=== PATIENT | male | born 1965 | race Caucasian/White ===

== ENCOUNTER 2017-01-22 12:41 | Inpatient (IN) | payer MEDICAID ==
[2017-01-22 12:41] VITALS: BMI 32.1
--- NOTE | 2017-01-22 14:39 | RAD ---
PROCEDURE: CHEST RADIOGRAPH, 1 VIEW HISTORY: chest pain COMPARISON: Comparison chest dated 08/10/2016 FINDINGS: LUNGS: Poor inspiration with low lung volumes, crowded bronchovascular markings and mild bibasilar atelectasis. PLEURA: No pneumothorax or pleural fluid seen. CARDIOVASCULAR: Heart size is upper limits of normal however this likely due to poor inspiration as well. OSSEOUS STRUCTURES: No significant abnormalities. VISUALIZED UPPER ABDOMEN: Normal. OTHER FINDINGS: None. IMPRESSION: Poor inspiration with low lung volumes, crowded bronchovascular markings and mild bibasilar atelectasis.
[2017-01-22 15:13] LABS: BASO % 0.3 % (0.0-2.0); EOS # 0.1 K/uL (0.0-0.7); EOS % 1.6 % (0.0-4.0); LYMPH # 1.1 K/uL (1.0-4.3); LYMPH % 15.6 % (20.0-40.0); MEAN CORPUSCULAR HEMOGLOBIN 29.3 pg (27.0-31.0); MEAN CORPUSCULAR HGB CONC 34.8 g/dL (33.0-37.0); MEAN PLATELET VOLUME 8.1 fL (7.2-11.7); MONO # 0.7 K/uL (0.0-0.8); MONO % 10.1 % (0.0-10.0); NRBC % 0.1 % (0.0-2.0); RED CELL DISTRIBUTION WIDTH 13.2 % (11.5-14.5); WHITE BLOOD COUNT 6.8 K/uL (4.8-10.8)
[2017-01-22 15:15] LABS: MEAN CELL VOLUME 84.2 fL (80.0-94.0)
[2017-01-22 15:25] LABS: POTASSIUM 4.2 mmol/L (3.6-5.2)
[2017-01-22 15:26] LABS: ALB/GLOB RATIO 1.6 (1.0-2.1); BILIRUBIN,TOTAL 0.7 mg/dL (0.2-1.3); TOTAL PROTEIN 7.3 g/dL (6.3-8.3)
[2017-01-22 15:28] LABS: CALCIUM 8.9 mg/dl (8.6-10.4)
[2017-01-22 15:30] LABS: PARTIAL THROMBOPLASTIN TIME 27 SECONDS (21-34)
[2017-01-22 16:56] LABS: RBC URINE 1 /hpf (0-3); URINE BACTERIA RARE (<OCC); URINE BILIRUBIN NEGATIVE (NEGATIVE); URINE BLOOD NEGATIVE (NEGATIVE); URINE COLOR Yellow (YELLOW); URINE GLUCOSE (UA) NORMAL (Normal); URINE KETONE NEGATIVE (NEGATIVE); URINE PROTEIN NEGATIVE (NEGATIVE); URINE UROBILINOGEN NORMAL mg/dL (0.2-1.0); WBC URINE 7 /hpf (0-5)
[2017-01-22 16:57] LABS: URINE LEUKOCYTE ESTERASE 1+ Leu/uL (Negative)
[2017-01-22] MEDS ORDERED: Sodium Chloride 0.9% 1,000 ML IV ONE (17:45)
--- NOTE | 2017-01-22 17:52 | C.PDOC ---
Time Seen by Provider: 01/22/17 13:38 Chief Complaint (Nursing): Chest Pain History Per: Patient, EMS Onset/Duration Of Symptoms: Days (1), Waxing/Waning Current Symptoms Are (Timing): Still Present Severity: Moderate Quality: "Pain" Associated Symptoms: Dyspnea Modifying Factors: Other Indicated Below Exacerbating Factors: Exertion Additional History Per: Prior Records Past Medical History Reviewed: Historical Data, Nursing Documentation, Vital Signs Vital Signs: Last Vital Signs Temp 98.0 F 01/22/17 14:25 Pulse 59 L 01/22/17 14:25 Resp 16 01/22/17 14:25 BP 127/67 01/22/17 14:25 Pulse Ox 100 01/22/17 14:25 - Medical History PMH: Benign Prostatic Hyperplasia, CAD, Diabetes, HTN, Hypercholesterolemia, Hyperlipidemia, Malignancy (Prostate. Treated with radiation therapy) Surgical History: Coronary Stent (X2) Family History: States: Unknown Family Hx - Social History Hx Tobacco Use: No Hx Alcohol Use: No Hx Substance Use: No - Immunization History Hx Tetanus Toxoid Vaccination: No Hx Influenza Vaccination: No Hx Pneumococcal Vaccination: No Review Of Systems Except As Marked, All Systems Reviewed And Found Negative. Constitutional: Negative for: Fever Cardiovascular: Positive for: Chest Pain Respiratory: Negative for: Hemoptysis Gastrointestinal: Negative for: Vomiting, Abdominal Pain Genitourinary: Positive for: Dysuria (?) Musculoskeletal: Negative for: Neck Pain Skin: Negative for: Rash Neurological: Negative for: Weakness, Numbness Physical Exam - Physical Exam Appears: Non-toxic, No Acute Distress Skin: Normal Color, Warm, Dry, No Rash Head: Atraumatic, Normacephalic Eye(s): bilateral: Normal Inspection, PERRL, EOMI Neck: Normal ROM, Supple Cardiovascular: Rhythm Regular Respiratory: Normal Breath Sounds, No Accessory Muscle Use Gastrointestinal/Abdominal: Soft, No Tenderness Back: No CVA Tenderness Male Genital: No Testicular Swelling, No Scrotal Swelling Extremity: Normal ROM Neurological/Psych: Oriented x3, Normal Motor, Normal Sensation ED Course And Treatment - Laboratory Results Result Diagrams: 01/22/17 15:09 01/22/17 15:09 Lab Interpretation: Abnormal Interpretation Of Abnormal: Renal insufficiency ECG: Interpreted By Me, Viewed By Me ECG Rhythm: Sinus Rhythm, Nonspecific Changes ECG Interpretation: No Acute Changes Rate From EC O2 Sat by Pulse Oximetry: 100 Pulse Ox Interpretation: Normal - Radiology CXR: Viewed By Me, Read By Radiologist CXR Interpretation: Yes: No Acute Disease Progress - Interventions Interventions:: Observation, Intravenous fluid, Oxygen - Medications Administered Oral: Aspirin (given by EMS) - Data Reviewed Data Reviewed: Lab, Diagnostic imaging, EKG, Old records - Patient Status Patient status: Partially improved - Continuity of Care Discussed patient case with:: Patient, ED Nurse, PMD - Patient Plan Patient Plan: Admission, Telemetry Disposition Discussed With DrRaymundo: Rach Friedman Comment: He accepted pt on his service. Doctor Will See Patient In The: Hospital Counseled Patient/Family Regarding: Studies Performed, Diagnosis - Disposition Disposition: HOSPITALIZED Disposition Time: 17:54 Condition: FAIR - Clinical Impression Clinical Impression: Chest pain, Acute kidney injury
[2017-01-23] MEDS: Sodium Chloride 0.9% 1,000 ML IV SCH ×3 (01:58→22:55)
[2017-01-23] MEDS: (Novolog) Insulin Aspart, Recombinant 100 u/ml 10 ml vial SC SCH ×4 (07:31→22:04)
[2017-01-23] MEDS ORDERED: Metoprolol Succinate 50 mg XL Tab PO SCH (10:00)
[2017-01-23] MEDS: Bisoprolol-HCTZ 5-6.25 mg Tab PO SCH (10:04)
[2017-01-23] MEDS: Lactobacillus Acidophilus 500 MU Cap PO SCH (10:04)
[2017-01-23] MEDS: Multiple Vitamins Tab PO SCH (10:04)
[2017-01-23 11:41] LABS: CHLORIDE 102 mmol/L (98-107); SODIUM 135 mmol/L (132-148)
[2017-01-23 11:42] LABS: POTASSIUM 3.7 mmol/L (3.6-5.2)
[2017-01-23 11:44] LABS: BLOOD UREA NITROGEN 31 mg/dL (9-20); CARBON DIOXIDE 23 mmol/L (22-30); GFR AFRICAN-AMERICAN 48
[2017-01-23 11:45] LABS: CALCIUM 8.5 mg/dl (8.6-10.4); GLUCOSE,RANDOM 177 mg/dL (75-110)
--- NOTE | 2017-01-23 16:06 | CP.PCM.CON ---
History of Present Illness - History of Present Illness History of Present Illness: pt is seen and examined, full consult is dictated #[id number] 1. Jen on ckd 2. htn 3. dm 4. cad, s/p stent check u/s kidneys for size, check hept.b,c serology, loni, pth intact gentle iv hydration Past Patient History - Infectious Disease Hx of Infectious Diseases: None - Past Medical History & Family History Past Medical History?: Yes - Past Social History Smoking Status: Never Smoked - CARDIAC Hx Cardiac Disorders: Yes Hx Hypercholesterolemia: Yes Hx Hypertension: Yes - PULMONARY Hx Respiratory Disorders: No - NEUROLOGICAL Hx Neurological Disorder: No - HEENT Hx HEENT Problems: No - RENAL Hx Chronic Kidney Disease: No - ENDOCRINE/METABOLIC Hx Endocrine Disorders: Yes Hx Diabetes Mellitus Type 2: Yes - HEMATOLOGICAL/ONCOLOGICAL Hx Blood Disorders: No - INTEGUMENTARY Hx Dermatological Problems: No - MUSCULOSKELETAL/RHEUMATOLOGICAL Hx Musculoskeletal Disorders: Yes Hx Falls: Yes ("lost conscious twice") - GASTROINTESTINAL Hx Gastrointestinal Disorders: No - GENITOURINARY/GYNECOLOGICAL Hx Genitourinary Disorders: Yes Hx Prostate Cancer: Yes Hx Prostate Problems: Yes - PSYCHIATRIC Hx Psychophysiologic Disorder: No Hx Substance Use: No - SURGICAL HISTORY Hx Surgeries: Yes Hx Coronary Stent: Yes (X2) - ANESTHESIA Hx Anesthesia: Yes Hx Anesthesia Reactions: No Hx Malignant Hyperthermia: No Has any member of the family had a problem w/ anesthesia?: No Meds Allergies/Adverse Reactions: Allergies Allergy/AdvReac Type Severity Reaction Status Date / Time strawberry Allergy REDNESS Verified 01/22/17 12:57 - Medications Medications: Current Medications Aspirin (Aspirin Chewable) 81 mg PO DAILY [facility] Last Admin: 01/23/17 10:03 Dose: 81 mg Bisoprolol Fumarate (Zebeta) 5 mg PO DAILY [facility] Clopidogrel Bisulfate (Plavix) 75 mg PO DAILY [facility] Last Admin: 01/23/17 10:03 Dose: 75 mg Docusate Sodium (Colace) 100 mg PO BID [facility] Sodium Chloride (Sodium Chloride 0.9%) 1,000 mls @ 100 mls/hr IV .Q10H [facility] Last Admin: 01/23/17 12:13 Dose: 100 mls/hr Insulin Aspart (Novolog) 0 unit SC ACHS [facility] PRN Reason: Protocol Last Admin: 01/23/17 12:00 Dose: Not Given Lactobacillus Acidophilus (Bacid Acidophilus) 1 cap PO DAILY [facility] Last Admin: 01/23/17 10:04 Dose: 1 cap Lactulose (Enulose) 20 gm PO TID [facility] Metoprolol Succinate (Toprol Xl) 50 mg PO DAILY [facility] Last Admin: 01/23/17 10:03 Dose: 50 mg Multivitamins (Hexavitamin) 1 tab PO DAILY [facility] Last Admin: 01/23/17 10:04 Dose: 1 tab Pneumococcal Polyvalent Vaccine (Pneumovax 23 Vaccine) 0.5 ml IM .ONCE ONE Stop: 01/25/17 10:01 Rosuvastatin Calcium (Crestor) 20 mg PO [facility] Results - Vital Signs Recent Vital Signs: Last Vital Signs Temp 97.8 F 01/23/17 07:30 Pulse 65 01/23/17 07:30 Resp 20 01/23/17 07:30 BP 114/75 01/23/17 07:30 Pulse Ox 96 01/23/17 07:30 - Labs Result Diagrams: 01/22/17 15:09 01/23/17 11:11 Labs: Laboratory Results - last 24 hr 01/22/17 01/22/17 01/23/17 16:40 21:44 01:16 Sodium Potassium Chloride Carbon Dioxide Anion Gap BUN Creatinine Est GFR ( Amer) Est GFR (Non-Af Amer) POC Glucose (mg/dL) 90 Random Glucose Calcium Total Creatine Kinase 88 CK-MB (Mass) 0.37 Troponin I, Quant 0.0120 Urine Color Yellow Urine Clarity Clear Urine pH 5.0 Ur Specific [place] 1.011 Urine Protein Negative Urine Glucose (UA) Normal Urine Ketones Negative Urine Blood Negative Urine Nitrate Negative Urine Bilirubin Negative Urine Urobilinogen Normal Ur Leukocyte Esterase 1+ H Urine WBC (Auto) 7 H Urine RBC (Auto) 1 Urine Bacteria Rare 01/23/17 01/23/17 01/23/17 06:39 11:11 11:53 Sodium 135 Potassium 3.7 Chloride 102 Carbon Dioxide 23 Anion Gap 14 BUN 31 H Creatinine 1.8 H Est GFR ( Amer) 48 Est GFR (Non-Af Amer) 40 POC Glucose (mg/dL) 133 H 86 Random Glucose 177 H Calcium 8.5 L Total Creatine Kinase 69 CK-MB (Mass) 0.42 Troponin I, Quant < 0.0120 Urine Color Urine Clarity Urine pH Ur Specific [place] Urine Protein Urine Glucose (UA) Urine Ketones Urine Blood Urine Nitrate Urine Bilirubin Urine Urobilinogen Ur Leukocyte Esterase Urine WBC (Auto) Urine RBC (Auto) Urine Bacteria
--- NOTE | 2017-01-23 23:42 | CON ---
DATE: CARDIOLOGY CONSULT REASON FOR CONSULTATION: Dizziness and near syncope. HISTORY OF PRESENT ILLNESS: The patient is a 51-year-old [place] male who has a history of diabetes mellitus, history of coronary artery disease, underwent stenting few years ago at [facility]; however, no record is available from my own review of the [facility] database. The patient presented because of dizziness. The patient stated that he was experiencing diarrhea and slight fever and day before yesterday, had a near fainting episode while urinating; however, the patient elected not to call the ambulance and came to Dr. Carson office and Dr. Carson called EMS to transfer him to the emergency room. The patient also reporting chest discomfort upon his presentation. PAST MEDICAL HISTORY: History of prostatic CA treated with radiation, history of coronary artery disease, questionable coronary intervention in the past, history of diabetes mellitus. MEDICATIONS: Aspirin 81 mg once a day, Crestor 20 mg once a day, multivitamin one tablet once a day, Plavix 75 mg once a day, Toprol XL 50 mg once a day, Ziac once tablet once a day. SOCIAL HISTORY: Nonsmoker. PHYSICAL EXAMINATION: GENERAL: The patient is a middle-aged male, who does not appear to be in any distress. VITAL SIGNS: Blood pressure 114/75, heart rate 65, temperature 97.8, respirations 20. HEENT: Normocephalic. NECK: No JVD. CHEST: Clear. HEART: S1 and S2 regular. ABDOMEN: Soft. EXTREMITIES: No edema. LABORATORY DATA: SMA-7; sodium 135, potassium 3.7, chloride 102, CO2 of 23, glucose 177, BUN 31, and creatinine 1.8. PT, PTT and INR are within normal limits. Hemoglobin, hematocrit, white count and platelet count are within normal limits. Chest x-ray revealed normal cardiac silhouette, prominent bronchovascular markings. EKG reveals normal sinus rhythm at the rate of 60. ASSESSMENT: 1. Dizziness and near syncope, rule out underlying dehydration. 2. Atypical chest pain. Myocardial infarction is ruled out. 3. Acute renal insufficiency, most likely related to underlying dehydration. RECOMMENDATIONS: Aspirin 81 mg once a day, Crestor 20 mg once a day, Plavix 75 mg once a day, Toprol XL 20 mg once a day. Discontinue Ziac and replace it with bisoprolol at 5 mg daily. Obtain an echocardiogram. Chapito Tripp MD [facility] # [id number]
--- NOTE | 2017-01-24 01:27 | CON ---
DATE: RENAL CONSULTATION LOCATION: The patient is located on room 653, bed A. REQUESTED BY: Rach Friedman MD. REASON FOR FOLLOWUP: Acute renal failure versus acute on chronic kidney disease for further evaluation. HISTORY OF PRESENT ILLNESS: Mr. Gonzales is a 51-year-old middle age obese [place]ian male with a past medical history significant for hypertension, type II diabetes, hyperlipidemia and prostate CA with radiation therapy, coronary artery disease, status post x2, who was admitted with a chief complaints of left flank pain and difficulty urinate and questionable dysuria and the patient was found to have worsening renal function and admitted for further evaluation, started on IV fluids. The patient is feeling slightly better, not in acute distress. Denies any headache, dizziness. Denies any chest pain, palpitation. Denies any fever, cough. Denies any nausea, vomiting, or diarrhea. Denies any swelling of the legs. PAST MEDICAL HISTORY: Significant for hypertension, diabetes, hyperlipidemia, coronary artery disease, status post stents, BPH, and prostate CA. PAST SURGICAL HISTORY: Status post coronary stents 2 and status post radiation therapy for the prostate CA. ALLERGIES: ALLERGIC TO STRAWBERRIES, CURRENT MEDICATIONS: Include aspirin 81 mg daily, Bacid one capsule p.o. daily, Colace 100 mg p.o. b.i.d., Crestor 20 mg at bedtime, lactulose 20 gram p.o. t.i.d., multivitamin one table daily, NovoLog for sliding scale, Plavix 75 mg p.o. daily, pneumococcal vaccine x1, normal saline 100 mL/hour and metoprolol 50 mg p.o. daily on hold and the patient is on Zebeta 5 mg p.o. daily. SOCIAL HISTORY: Denies any smoking, alcohol, or drugs. PERSONAL HISTORY: Not significant. FAMILY HISTORY: Not significant. REVIEW OF SYSTEMS: Significant for right flank pain and difficulty urinate. All other review of systems are reviewed and negative. PHYSICAL EXAMINATION: VITAL SIGNS: Blood pressure 130/76, pulse 57, respirations 20, temperature 98, saturations 97%, height 5 feet 6 inches, and weight is 210 pounds. GENERAL: Mr. Gonzales is a 51-year-old middle-aged obese [place]ian male, well built, well nourished, not in acute distress. HEENT: Pupils normal, reactive to light and accommodation. Conjunctiva pink. Sclerae anicteric. Tongue is moist. Trachea is midline. LUNGS: Symmetric on both sides. Bilateral breath sounds present. Clear to auscultation. CARDIOVASCULAR: [place] at the fifth intercostal space, midclavicular. S1 and S2 audible. No murmur or gallop. ABDOMEN: Normal in appearance, soft, tympanic. No guarding. No rigidity. No hepatosplenomegaly. No abdominal bruits. CENTRAL NERVOUS SYSTEM: The patient is alert, awake, oriented x3. Nonfocal neuro examination. Cranial nerves II through XII grossly intact. Sensory and motor system is within normal limits. EXTREMITIES: No cyanosis. No clubbing. No edema. LABORATORY DATA: Includes as follows; as of 01/23/2017, sodium 135, potassium 3.7, chloride 102, CO2 of 23, BUN 31, creatinine 1.8, and glucose of 177, calcium 8.5 and CPK 88, 69, and 73. CK-MB 0.37, 0.42, and 0.42. Troponin 0.012, 0.012, and 0.012. C3 is 121, C4 is 33.9. Other laboratory data; as of 01/22/2017, WBC 6.8, hemoglobin 15.7, hematocrit is 45, and platelets 178. PT 11.4, PTT 27, D-dimer less than 200. Sodium 135, potassium 4.0, chloride 100, CO2 of 25, BUN 33, creatinine 2.6, glucose 100, calcium 8.9, total bili 0.7, AST 27, ALT 41, alkaline phosphatase 57. ProBNP 131 and total protein 7.3. Urinalysis; yellow, clear, pH 5.0, specific gravity 1.011, protein negative, glucose negative, ketones negative, blood negative, nitrites negative, urobilinogen normal. Leukocyte esterase is 1+. WBC is 7, RBC 1, bacteria rare. Urine culture is negative. ASSESSMENT: In summary, Mr. Gonzales is a 51-year-old obese [place]istanian male with hypertension; diabetes; hyperlipidemia; coronary artery disease, status post stents x2; prostate carcinoma, status post treatment with radiation therapy who was admitted with left flank pain and questionable dysuria, increase BUN and creatinine. 1. Acute renal failure versus acute on chronic kidney disease. 2. Hypertension. 3. Diabetes. 4. Coronary artery disease. PLAN: Continue IV fluids. We will check hepatitis B and C serology, CATRACHO, and ultrasound of the kidneys. Continue gentle IV hydration. We will follow with you. Thank you for allowing me to participate in your patient's care. Cannot rule out intravascular volume depletion and mild dehydration. Aliya Livingston MD
[2017-01-24] MEDS ORDERED: Hydrocortisone 2.5% Rectal Cream(30 gm) PR ONE (02:47)
[2017-01-24] MEDS ORDERED: Hydrocortisone 2.5% Rectal Cream(30 gm) PR SCH (03:00)
[2017-01-24 07:18] LABS: BASO % 0.6 % (0.0-2.0); EOS # 0.1 K/uL (0.0-0.7); EOS % 2.8 % (0.0-4.0); HEMATOCRIT 40.1 % (35.0-51.0); LYMPH # 1.1 K/uL (1.0-4.3); LYMPH % 23.6 % (20.0-40.0); MEAN CELL VOLUME 84.1 fL (80.0-94.0); MEAN CORPUSCULAR HEMOGLOBIN 28.9 pg (27.0-31.0); MEAN CORPUSCULAR HGB CONC 34.3 g/dL (33.0-37.0); MEAN PLATELET VOLUME 7.9 fL (7.2-11.7); MONO # 0.5 K/uL (0.0-0.8); MONO % 11.3 % (0.0-10.0); RED CELL DISTRIBUTION WIDTH 13.3 % (11.5-14.5); WHITE BLOOD COUNT 4.7 K/uL (4.8-10.8)
[2017-01-24] MEDS: (Novolog) Insulin Aspart, Recombinant 100 u/ml 10 ml vial SC SCH ×4 (07:22→21:15)
[2017-01-24] MEDS: Sodium Chloride 0.9% 1,000 ML IV SCH ×2 (08:00→17:30)
[2017-01-24 08:02] LABS: CHLORIDE 104 mmol/L (98-107)
[2017-01-24 08:03] LABS: POTASSIUM 3.8 mmol/L (3.6-5.2); SODIUM 136 mmol/L (132-148)
[2017-01-24 08:05] LABS: GFR AFRICAN-AMERICAN > 60
[2017-01-24 08:06] LABS: BLOOD UREA NITROGEN 26 mg/dL (9-20); CALCIUM 8.3 mg/dl (8.6-10.4); CARBON DIOXIDE 22 mmol/L (22-30); GLUCOSE,RANDOM 123 mg/dL (75-110)
--- NOTE | 2017-01-24 10:28 | US ---
PROCEDURE: Ultrasound of the Kidneys HISTORY: marce on ckd for kidney size COMPARISON: Comparison made with CT scan abdomen and pelvis dated 11/09/2015 which image the kidneys in 3 planes. TECHNIQUE: Sonogram of the kidneys. FINDINGS: RIGHT KIDNEY: Right kidney measures approximately 9.9 x 4.9 x 5.2 cm. Normal in size, contour and echogenicity. No stone, solid mass lesion or hydronephrosis visualized. . At least 2 tiny cystic foci upper pole right kidney nonvisualized on this study as compared to high-resolution CT scan LEFT KIDNEY: Left kidney measures approximately 1.0 x 5.7 x 5.4 cm. Normal in size, contour and echogenicity. No stone, solid mass lesion or hydronephrosis visualized. . The tiny cystic foci seen on on prior CT scan not visualized on this exam OTHER FINDINGS: Urinary bladder incompletely distended. IMPRESSION: No evidence of nephrolithiasis or hydronephrosis. TheUnremarkable renal sonogram.
[2017-01-24] MEDS: Multiple Vitamins Tab PO SCH (10:37)
[2017-01-24] MEDS: Lactobacillus Acidophilus 500 MU Cap PO SCH (10:37)
[2017-01-24] MEDS: Bisoprolol-HCTZ 5-6.25 mg Tab PO SCH (10:39)
--- NOTE | 2017-01-25 00:42 | PN ---
DATE: SUBJECTIVE: The patient denies chest pain or dizziness. He complains of pain in the anal area. The patient attributed that to recent radiation for prostatic cancer and also to what he was told that he had an anal fissure. PHYSICAL EXAMINATION VITAL SIGNS: Blood pressure 142/88, heart rate 61, temperature 98.2, respirations 20. HEENT: Normocephalic. CHEST: Clear. HEART: S1 and S2 regular. ABDOMEN: Soft. EXTREMITIES: No edema. LABORATORY DATA: Renal ultrasound was unremarkable. Today's hemoglobin and hematocrit 13.8 and 40.1, white count 4.7, platelet count 144,000. Today's BUN and creatinine at 26 and 1.4, glucose is 123. ASSESSMENT: 1. Atypical chest pain, myocardial infarction ruled out. 2. Dizziness on presentation. 3. Dehydration and improved renal insufficiency. 4. History of recent prostatic cancer, underwent radiation therapy. PLAN: Continue aspirin 81 mg once a day. Crestor 20 mg once a day, Plavix 75 mg once a day, Toprol XL 50 mg once a day, Zebeta 5 mg once a day. The patient is scheduled for an echocardiogram tomorrow. I will obtain a head CT scan. Chapito Tripp MD
[2017-01-25] MEDS: Sodium Chloride 0.9% 1,000 ML IV SCH (03:30)
[2017-01-25] MEDS: (Novolog) Insulin Aspart, Recombinant 100 u/ml 10 ml vial SC SCH ×4 (07:24→22:00)
--- NOTE | 2017-01-25 08:40 | HP ---
HISTORY OF PRESENT ILLNESS: This is a 51-year-old [place]i male with history of multiple medical problems, was admitted for nonspecific symptoms of shortness of breath, generalized weakness. Patient was evaluated in the emergency room and he was found to have acute renal failure with BUN of 33 and creatinine 2.6. Patient was recently diagnosed with anal fissure and he has been taking multiple antibiotics. Patient is compliant to his medications. Patient was complaining also of lower abdominal pain and constipation. REVIEW OF SYSTEMS: Other review of system is negative. ALLERGIES: THE PATIENT HAS ALLERGY TO STRAWBERRY. MEDICATIONS: As per MAR. SOCIAL HISTORY: No history of smoking, EtOH, or substance abuse. FAMILY HISTORY: Noncontributory. PAST MEDICAL HISTORY: Coronary artery disease status post PCI, hypertension, type 2 diabetes mellitus, prostate cancer status post seed radiation. FAMILY HISTORY: Noncontributory. PHYSICAL EXAMINATION: GENERAL: Patient is in bed, comfortable, not in any cardiopulmonary distress at the time of this examination. VITAL SIGNS: Blood pressure 149/91, temperature 98.0, respiratory rate 20, and pulse 56. HEENT: Pupils equal, reactive to light. Normal-appearing mucosa of the conjunctivae, oropharynx, and nasal membrane mucosa. NECK: Supple. No JVD. No carotid bruit. No lymph node. No thyromegaly. CHEST AND LUNGS: Bilateral symmetrical expansion. Good air exchange. No rales, no rhonchi. CARDIOVASCULAR SYSTEM: PMI not localized. S1, S2. No additional sounds. ABDOMEN: Normoactive bowel sounds. No tenderness. No organomegaly. No masses. EXTREMITIES: No cyanosis, no clubbing, no edema. CENTRAL NERVOUS SYSTEM: Alert, awake, oriented x3. No neurological deficit could be appreciated. ASSESSMENT: 1. Acute kidney injury, likely interstitial nephritis from multiple antibiotics that patient was given for the anal fissure. 2. History of coronary artery disease. 3. Type 2 diabetes mellitus. PLAN: IV fluids, renal ultrasound, renal consult, and follow recommendations. Resume patient's home medications. We will monitor electrolytes and renal function. Rach Friedman MD
[2017-01-25] MEDS: Lactobacillus Acidophilus 500 MU Cap PO SCH (09:23)
[2017-01-25] MEDS ORDERED: Pneumococcal 23-Valent Vaccine IM ONE (10:00)
[2017-01-25] MEDS: Multiple Vitamins Tab PO SCH (10:00)
[2017-01-25] MEDS ORDERED: Influenza Vaccine 60 mcg/0.5 mL SYR (4YR UP) IM ONE (10:00)
--- NOTE | 2017-01-25 12:48 | CP.PCM.PN ---
Subjective - Date & Time of Evaluation Date of Evaluation: 01/25/17 Time of Evaluation: 12:47 - Subjective Subjective: pt is seen and examined, follow up consult is dictated #[id number] Objective - Vital Signs/Intake and Output Vital Signs (last 24 hours): Temp Pulse Resp BP Pulse Ox 97.7 F 59 L 18 164/101 H 98 01/25/17 08:56 01/25/17 08:56 01/25/17 08:56 01/25/17 08:56 01/25/17 08:56 Intake and Output: 01/25/17 01/25/17 06:59 18:59 Intake Total 800 Balance 800 - Medications Medications: Current Medications Aspirin (Aspirin Chewable) 81 mg PO DAILY [facility] Last Admin: 01/25/17 09:23 Dose: 81 mg Bisoprolol Fumarate (Zebeta) 5 mg PO DAILY [facility] Clopidogrel Bisulfate (Plavix) 75 mg PO DAILY [facility] Last Admin: 01/25/17 09:23 Dose: 75 mg Docusate Sodium (Colace) 100 mg PO BID [facility] Last Admin: 01/25/17 09:23 Dose: 100 mg Insulin Aspart (Novolog) 0 unit SC [facility] PRN Reason: Protocol Last Admin: 01/25/17 12:08 Dose: Not Given Lactobacillus Acidophilus (Bacid Acidophilus) 1 cap PO DAILY [facility] Last Admin: 01/25/17 09:23 Dose: 1 cap Lactulose (Enulose) 20 gm PO TID [facility] Last Admin: 01/25/17 09:23 Dose: 20 gm Metoprolol Succinate (Toprol Xl) 50 mg PO DAILY [facility] Last Admin: 01/23/17 10:03 Dose: 50 mg Multivitamins (Hexavitamin) 1 tab PO DAILY [facility] Last Admin: 01/25/17 10:00 Dose: 1 tab Rosuvastatin Calcium (Crestor) 20 mg PO HS [facility] Last Admin: 01/24/17 21:14 Dose: 20 mg - Labs Labs: 01/24/17 07:12 01/24/17 07:12 PT 11.4 SECONDS (9.7-12.2) 01/22/17 15:09 INR 1.0 01/22/17 15:09 APTT 27 SECONDS (21-34) 01/22/17 15:09
--- NOTE | 2017-01-25 14:22 | PN ---
DATE: SUBJECTIVE: The patient denies any chest pain or dizziness. He is still experiencing rectal pain. PHYSICAL EXAMINATION: VITAL SIGNS: Blood pressure 164/101, heart rate 59, temperature 97.7, and respirations 18. HEENT: Normocephalic. CHEST: Clear. HEART: S1 and S2 regular. EXTREMITIES: No edema. LABORATORY DATA: Today's blood sugars are [address] scan, as well as, echocardiogram are still pending. ASSESSMENT: 1. Status post dizziness and near syncope. 2. Atypical chest pain, myocardial infarction is ruled out. 3. History of prostatic carcinoma, status post radiation therapy few months ago. 4. Uncontrolled hypertension and diabetes mellitus. RECOMMENDATIONS: Continue current aspirin 81 mg once a day, Crestor 20 mg once a day, Plavix 75 mg once a day, and Zebeta 5 mg once a day. The patient will undergo head CT scan without contrast, which is negative. The patient can be discharged and will be followed by primary care physician, Dr. Carsno. Case was discussed with the resident services director. Chapito Tripp MD
--- NOTE | 2017-01-25 14:54 | CT ---
PROCEDURE: CT HEAD WITHOUT CONTRAST. HISTORY: Dizziness COMPARISON: 01/12/2014. TECHNIQUE: Axial computed tomography images were obtained through the head/brain without intravenous contrast. Radiation dose: Total exam DLP = 1030.74 mGy-cm. This CT exam was performed using one or more of the following dose reduction techniques: Automated exposure control, adjustment of the mA and/or kV according to patient size, and/or use of iterative reconstruction technique. FINDINGS: HEMORRHAGE: No intracranial hemorrhage. BRAIN: Michel-white matter differentiation is preserved. There is no mass, mass effect or abnormal extra-axial fluid collection. There is an old lacunar infarction in the left thalamus, new since the prior examination. VENTRICLES: There is mild global parenchymal volume loss and proportionate enlargement of the ventricles and cortical sulci. CALVARIUM: The skull base and calvarium are normal. PARANASAL SINUSES: Predominantly clear. MASTOID AIR CELLS: Predominantly clear. OTHER FINDINGS: None. IMPRESSION: No acute intracranial abnormality. 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 Mild global parenchymal volume loss, advanced for the patient's age.
[2017-01-25] MEDS ORDERED: Oxycodone/Acetaminophen 5/325 mg Tab PO ONE (15:00)
[2017-01-25] MEDS ORDERED: Peg-Electrolyte Oral Soln 4L (Golytely) PO ONE (18:00)
[2017-01-25] MEDS ORDERED: Bisacodyl 5mg EC Tab PO ONE (18:00)
[2017-01-25] MEDS: Oxycodone/Acetaminophen 5/325 mg Tab PO PRN (18:05)
[2017-01-25] MEDS: metroNIDAZOLE IV 500 mg/100 ml 500 MG/100 ML BAG IVPB SCH (18:45)
[2017-01-25 22:44] LABS: CARCINOEMBRYONIC ANTIGEN 0.8 ng/mL (0-3.0)
[2017-01-25] MEDS ORDERED: Metoprolol Succinate 50 mg XL Tab PO ONE (23:22)
--- NOTE | 2017-01-26 04:02 | PN ---
DAILY PROGRESS NOTE DATE: 01/25/2017 SUBJECTIVE: The patient is seen today 01/25/2017. He is not in any cardiopulmonary distress, but the patient has perianal pain and he saw blood. PHYSICAL EXAMINATION: VITAL SIGNS: Blood pressure 167/91, temperature 97.8, respiratory rate 20, and pulse 66. HEENT: Pupils equal and reactive to light. Normal-appearing mucosa of the conjunctivae, oropharyngeal, and nasal membrane mucosa. NECK: Supple. No JVD. No carotid bruit. No lymph node. No thyromegaly. CHEST AND LUNGS: Bilaterally symmetrical expansion. Good air exchange. No rales. No rhonchi. CARDIOVASCULAR: PMI not localized. S1 and S2. No additional sounds. ABDOMEN: Normoactive bowel sounds. No tenderness. No organomegaly. No masses. EXTREMITIES: No cyanosis. No clubbing. No edema. CENTRAL NERVOUS SYSTEM: Alert, awake, and oriented x3. No neurological deficit could be appreciated. ASSESSMENT: 1. Status post acute renal failure. 2. Rectal bleeding. 3. Hypertension. 4. Coronary artery disease. 5. Type 2 diabetes mellitus. PLAN: Gastrointestinal consult follow Cardiology recommendations. Rach Friedman MD
[2017-01-26] MEDS: metroNIDAZOLE IV 500 mg/100 ml 500 MG/100 ML BAG IVPB SCH ×3 (05:49→19:00)
--- NOTE | 2017-01-26 07:08 | PN ---
FOLLOWUP RENAL CONSULTATION DATE: LOCATION: The patient is located room 652, bed A. REQUESTED BY: Dr. Rach Friedman REASON FOR FOLLOWUP AND EVALUATION: Acute on chronic kidney disease versus acute renal failure. SUBJECTIVE: Geetha Gonzales is about 51-year-old obese [place] male with a past medical history significant for hypertension, hyperlipidemia, diabetes, coronary artery disease, BPH and prostate CA status post radiation therapy, status post coronary stents x2, who was admitted with left flank pain and also difficulty to urinate and the patient was found to have elevated BUN and creatinine and started on IV fluids and urine culture was negative. On admission, the patient is feeling better, not in any acute distress. No chest pain. No palpitation. No fever. No cough. No abdominal pain. No nausea, vomiting, or diarrhea. PHYSICAL EXAMINATION GENERAL: Geetha Gonzales is a 51-year-old obese male, well built and well nourished, not in distress. VITAL SIGNS: As follows; blood pressure of 164/101, pulse of 59, respirations of 18, temperature of 97.7, and saturation of 98%. Height is 5 feet 6 inches and weight is 210 pounds. HEENT: Pupils are normal, reactive to light and accommodation. Conjunctivae are pink. Sclerae are anicteric. Tongue is moist. Trachea is midline. LUNGS: Symmetric on both sides. Bilateral breath sounds present. Clear on auscultation. CARDIOVASCULAR SYSTEM: [place] at the fifth intercostal space, midclavicular line. S1 and S2 audible. No murmur or gallop. ABDOMEN: Normal in appearance, soft, and tympanic. No guarding. No rigidity. No hepatosplenomegaly. CENTRAL NERVOUS SYSTEM: The patient is alert, awake, and oriented x3. Nonfocal on examination. Cranial nerves II through XII grossly intact. Sensory and motor system grossly within normal limits. EXTREMITIES: No cyanosis. No clubbing. No edema. MEDICATIONS: His current medications include as follows; Anusol HC 25 mg per rectal t.i.d., aspirin 81 mg daily, Bacid 1 capsule p.o. daily, Colace 100 mg p.o. b.i.d., Crestor 20 mg at bedtime, lactulose 20 g p.o. t.i.d. and Flagyl 500 mg q. 8 hours and multivitamin 1 tablet daily, Percocet 1 tablet q. 6 hours and Plavix 75 mg daily, metoclopramide 5 mg IV q. 6 hours, metoprolol 50 mg p.o. daily on hold, and Zebeta 5 mg p.o. daily. LABORATORY DATA: As of 01/24/2017, WBC is 4.7, hemoglobin 13.8, hematocrit is 40.1, platelets 144. Sodium is 136, potassium 3.8, chloride 104, CO2 22, BUN 26, creatinine 1.4, glucose 123, calcium 8.3. As of 01/23/2017, PTH was 48, CATRACHO negative, compliment level C3 is 121 normal, C4 is 33.9, hepatitis B surface antigen negative, surface antibody is negative, hepatitis C antibody is negative. Renal ultrasound was obtained on 01/23/2017, right kidney measures 9.9 x 4.9 x 5.2 cm and his left kidney is 11 x 5.7 x 5.3 and the volume is 177 mL. ASSESSMENT: 1. Acute renal failure versus acute on chronic kidney disease. Renal function is improved with IV hydration. 2. Uncontrolled hypertension. 3. Prostate cancer status post radiation therapy. 4. Two tiny cystic foci in the right upper pole of the kidney, non-visualized on the ultrasound. PLAN: Repeat BNP in a.m. No further workup is needed from the renal standpoint at this time. Thank you for allowing me to participate in your the patient's care. This might be his baseline creatinine of 1.4. Aliya Livingston MD
[2017-01-26] MEDS: (Novolog) Insulin Aspart, Recombinant 100 u/ml 10 ml vial SC SCH ×4 (07:30→22:19)
--- NOTE | 2017-01-26 07:38 | CARD ---
APPROVED REPORT EXAM: Two-dimensional and M-mode echocardiogram with Doppler and color Doppler. Other Information Quality : GoodRhythm : NSR INDICATION Dizziness and Vertigo Chest Pain M-Mode DIMENSIONS RVDd1.51 (2.1-3.2cm)Left Atrium (MM)3.98 (2.5-4.0cm) IVSd0.89 (0.7-1.1cm)Aortic Root3.72 (2.2-3.7cm) LVDd6.31 (4.0-5.6cm)Aortic Cusp Exc.2.07 (1.5-2.0cm) PWd1.00 (0.7-1.1cm)FS (%) 30 % LVDs4.39 (2.0-3.8cm)LVEF (%)57 (>50%) Aortic Valve AoV Peak Hyhjmaze761.6cm/Mani Peak GR.7mmHg Mitral Valve MV E Isdxudwr04.6cm/sMV A Ioczgkqk59.4cm/sE/A ratio1.9 TDI E/Lateral E'0.0E/Medial E'0.0 Tricuspid Valve TR Peak Sbbxfmnt499kw/sTR Peak Gr.90gbMyPXGR76vuDt LEFT VENTRICLE The Left Ventricle is mildly dilated. There is normal left ventricular wall thickness. Left ventricle systolic function is normal. The Ejection Fraction is 55-60%. There is normal LV segmental wall motion. The left ventricular diastolic function is normal. RIGHT VENTRICLE The right ventricle is normal size. There is normal right ventricular wall thickness. The right ventricular systolic function is normal. ATRIA The left atrium size is normal. The right atrium size is normal. The interatrial septum is intact with no evidence for an atrial septal defect. AORTIC VALVE The aortic valve is normal in structure. No aortic regurgitation is present. There is no aortic valvular stenosis. There is no aortic valvular vegetation. MITRAL VALVE The mitral valve is normal in structure. There is no evidence of mitral valve prolapse. There is no mitral valve stenosis. There is no mitral valve regurgitation noted. TRICUSPID VALVE The tricuspid valve is normal in structure. There is mild tricuspid regurgitation. Right ventricular systolic pressure is estimated at 30-40 mmHg. There is no pulmonary hypertension. PULMONIC VALVE The pulmonic valve is not well visualized. There is no pulmonic valvular regurgitation. GREAT VESSELS The aortic root is normal in size. PERICARDIAL EFFUSION There is no significant pericardial effusion. <Conclusion> Left ventricle systolic function is normal. The Ejection Fraction is 55-60%. No aortic regurgitation is present. There is no mitral valve regurgitation noted. There is mild tricuspid regurgitation. There is no pulmonary hypertension. There is no pulmonic valvular regurgitation.
[2017-01-26 10:59] LABS: CHLORIDE 101 mmol/L (98-107); SODIUM 136 mmol/L (132-148)
[2017-01-26] MEDS: Lactobacillus Acidophilus 500 MU Cap PO SCH (10:59)
[2017-01-26 11:00] LABS: POTASSIUM 3.6 mmol/L (3.6-5.2)
[2017-01-26] MEDS: Multiple Vitamins Tab PO SCH (11:00)
[2017-01-26 11:02] LABS: GFR AFRICAN-AMERICAN > 60
[2017-01-26 11:03] LABS: BLOOD UREA NITROGEN 18 mg/dL (9-20); CALCIUM 8.7 mg/dl (8.6-10.4); CARBON DIOXIDE 24 mmol/L (22-30); GLUCOSE,RANDOM 109 mg/dL (75-110)
[2017-01-26] MEDS ORDERED: Propofol 10 mg/ml Inj (20 ML) ONE (11:54)
[2017-01-26] MEDS: Lactated Ringer's 500 ML IV SCH (13:00)
[2017-01-26 14:34] LABS: CA 19-9 < 1.4 U/mL (0-37)
[2017-01-26] MEDS: Metoprolol Succinate 50 mg XL Tab PO SCH (16:26)
[2017-01-26] MEDS: Oxycodone/Acetaminophen 5/325 mg Tab PO PRN (17:53)
--- NOTE | 2017-01-26 17:58 | CP.PCM.CON ---
<Michelle Medellin - Last Filed: 01/26/17 18:01> History of Present Illness - History of Present Illness History of Present Illness: SURGERY CONSULT NOTE FOR DR. NIEVES 51yo M presented to the ED with Chest pain and dizziness and difficulty urinating on 01/22 and was admitted for atypical CP and KIKI. He also had diarrhea and slight fever the day prior to arrival. ND was ruled out. KIKI was likely secondary to dehydration or antibiotic use. Patient had recently been diagnosed with anal fissure and was taking antibiotics. He complains of rectal pain and states that he has had the pain for 20 days. He noticed a small amount of blood during BM before. GI was consulted and an colonoscopy was done today which showed large internal and external hemorrhoids as well as a medium sized anal fissure in the anal canal. PMHx: BPH, CAD, DM, HTN, hyperlipidemia, prostate cancer s/p radiation Surgeries: coronary stent x2 Allergies: strawberry Review of Systems - Review of Systems All systems: reviewed and no additional remarkable complaints except (as per HPI ) Past Patient History - Infectious Disease Hx of Infectious Diseases: None - Past Medical History & Family History Past Medical History?: Yes - Past Social History Smoking Status: Never Smoked - CARDIAC Hx Cardiac Disorders: Yes Hx Hypercholesterolemia: Yes Hx Hypertension: Yes - PULMONARY Hx Respiratory Disorders: No - NEUROLOGICAL Hx Neurological Disorder: No - HEENT Hx HEENT Problems: No - RENAL Hx Chronic Kidney Disease: No - ENDOCRINE/METABOLIC Hx Endocrine Disorders: Yes Hx Diabetes Mellitus Type 2: Yes - HEMATOLOGICAL/ONCOLOGICAL Hx Blood Disorders: No - INTEGUMENTARY Hx Dermatological Problems: No - MUSCULOSKELETAL/RHEUMATOLOGICAL Hx Musculoskeletal Disorders: Yes Hx Falls: Yes ("lost conscious twice") - GASTROINTESTINAL Hx Gastrointestinal Disorders: No - GENITOURINARY/GYNECOLOGICAL Hx Genitourinary Disorders: Yes Hx Prostate Cancer: Yes Hx Prostate Problems: Yes - PSYCHIATRIC Hx Psychophysiologic Disorder: No Hx Substance Use: No - SURGICAL HISTORY Hx Surgeries: Yes Hx Coronary Stent: Yes (X2) - ANESTHESIA Hx Anesthesia: Yes Hx Anesthesia Reactions: No Hx Malignant Hyperthermia: No Has any member of the family had a problem w/ anesthesia?: No Meds Home Medications: Home Medication List Medication Instructions Recorded Confirmed Type Bisoprolol [Zebeta] 5 mg PO DAILY #30 tab 01/25/17 Rx Allergies/Adverse Reactions: Allergies Allergy/AdvReac Type Severity Reaction Status Date / Time strawberry Allergy REDNESS Verified 01/22/17 12:57 - Medications Medications: Current Medications Acetaminophen (Tylenol 325mg Tab) 650 mg PO Q6 PRN PRN Reason: Pain, severe (8-10) Last Admin: 01/26/17 16:25 Dose: 650 mg Aspirin (Aspirin Chewable) 81 mg PO DAILY [facility] Last Admin: 01/26/17 10:59 Dose: Not Given Bisoprolol Fumarate (Zebeta) 5 mg PO DAILY [facility] Last Admin: 01/26/17 11:00 Dose: Not Given Clopidogrel Bisulfate (Plavix) 75 mg PO DAILY [facility] Last Admin: 01/26/17 10:59 Dose: Not Given Docusate Sodium (Colace) 100 mg PO BID [facility] Last Admin: 01/26/17 10:58 Dose: Not Given Hydrocortisone (Anusol-Hc) 25 mg RC TID [facility] Last Admin: 01/26/17 14:00 Dose: 25 mg Metronidazole (Flagyl) 500 mg in 100 mls @ 100 mls/hr IVPB Q8H [facility] Last Admin: 01/26/17 12:00 Dose: 100 mls/hr Lactated Ringer's (Lactated Ringer's 500ml) 500 mls @ 75 mls/hr IV .Q6H40M [facility] Last Admin: 01/26/17 13:00 Dose: 75 mls/hr Insulin Aspart (Novolog) 0 unit SC ACHS [facility] PRN Reason: Protocol Last Admin: 01/26/17 16:30 Dose: Not Given Lactobacillus Acidophilus (Bacid Acidophilus) 1 cap PO DAILY [facility] Last Admin: 01/26/17 10:59 Dose: Not Given Lactulose (Enulose) 20 gm PO TID [facility] Last Admin: 01/26/17 14:46 Dose: Not Given Metoclopramide HCl (Reglan) 5 mg IVP Q6 [facility] Last Admin: 01/26/17 13:00 Dose: 5 mg Metoprolol Succinate (Toprol Xl) 50 mg PO DAILY [facility] Last Admin: 01/23/17 10:03 Dose: 50 mg Metoprolol Succinate (Toprol Xl) 50 mg PO DAILY [facility] Last Admin: 01/26/17 16:26 Dose: 50 mg Multivitamins (Hexavitamin) 1 tab PO DAILY [facility] Last Admin: 01/26/17 11:00 Dose: Not Given Oxycodone/Acetaminophen (Percocet 5/325 Mg Tab) 1 tab PO Q6H PRN PRN Reason: Agitation Stop: 01/28/17 17:31 Last Admin: 01/25/17 18:05 Dose: 1 tab Rosuvastatin Calcium (Crestor) 20 mg PO HS [facility] Last Admin: 01/25/17 21:01 Dose: 20 mg Physical Exam - Constitutional Appears: Non-toxic, No Acute Distress - Head Exam Head Exam: ATRAUMATIC, NORMAL INSPECTION - Respiratory Exam Respiratory Exam: NORMAL BREATHING PATTERN. absent: Respiratory Distress - Cardiovascular Exam Cardiovascular Exam: +S1, +S2 - GI/Abdominal Exam GI & Abdominal Exam: Soft. absent: Distended, Firm, Guarding, Tenderness - Rectal Exam Rectal Exam: NORMAL INSPECTION - Neurological Exam Neurological exam: Alert, CN II-XII Intact, Oriented x3 - Psychiatric Exam Psychiatric exam: Normal Affect, Normal Mood - Skin Skin Exam: Dry, Normal Color, Warm Results - Vital Signs Recent Vital Signs: Last Vital Signs Temp 98.6 F 01/26/17 15:35 Pulse 64 01/26/17 15:35 Resp 20 01/26/17 15:35 BP 162/91 H 01/26/17 15:35 Pulse Ox 98 01/26/17 15:35 - Labs Result Diagrams: 01/24/17 07:12 01/26/17 10:35 Labs: Laboratory Results - last 24 hr 01/25/17 01/25/17 01/25/17 20:21 21:51 22:34 Sodium Potassium Chloride Carbon Dioxide Anion Gap BUN Creatinine Est GFR ( Amer) Est GFR (Non-Af Amer) POC Glucose (mg/dL) 90 104 Random Glucose Calcium Carcinoembryonic Ag 0.8 CA 19-9 Antigen < 1.4 01/26/17 01/26/17 01/26/17 02:03 07:28 10:35 Sodium 136 Potassium 3.6 Chloride 101 Carbon Dioxide 24 Anion Gap 15 BUN 18 Creatinine 1.2 Est GFR ( Amer) > 60 Est GFR (Non-Af Amer) > 60 POC Glucose (mg/dL) 122 H 138 H Random Glucose 109 Calcium 8.7 Carcinoembryonic Ag CA 19-9 Antigen 01/26/17 17:10 Sodium Potassium Chloride Carbon Dioxide Anion Gap BUN Creatinine Est GFR ( Amer) Est GFR (Non-Af Amer) POC Glucose (mg/dL) 90 Random Glucose Calcium Carcinoembryonic Ag CA 19-9 Antigen Assessment & Plan - Assessment and Plan (Free Text) Assessment: 51yo M with PMHx of HTN, DM, prostate cancer s/p radiation who was found to have anal fissure and hemorrhoids on colonoscopy - Afebrile, VSS - No anemia - Dr. Nieves will evaluate pt to determine if surgical intervention is appropriate - Discussed plan with Dr. Chaz Medellin PGY-3 <Marc Nieves Jr. - Last Filed: 01/27/17 13:28> History of Present Illness - History of Present Illness History of Present Illness: plan EUA and likely sphincterotomy Meds - Medications Medications: Current Medications Acetaminophen (Tylenol 325mg Tab) 650 mg PO Q6 PRN PRN Reason: Pain, severe (8-10) Last Admin: 01/26/17 16:25 Dose: 650 mg Aspirin (Aspirin Chewable) 81 mg PO DAILY [facility] Last Admin: 01/27/17 11:00 Dose: 81 mg Bisoprolol Fumarate (Zebeta) 5 mg PO DAILY [facility] Last Admin: 01/26/17 11:00 Dose: Not Given Clopidogrel Bisulfate (Plavix) 75 mg PO DAILY [facility] Last Admin: 01/27/17 11:00 Dose: 75 mg Docusate Sodium (Colace) 100 mg PO BID [facility] Last Admin: 01/27/17 11:00 Dose: 100 mg Hydrocortisone (Anusol-Hc) 25 mg RC TID [facility] Last Admin: 01/27/17 13:11 Dose: Not Given Metronidazole (Flagyl) 500 mg in 100 mls @ 100 mls/hr IVPB Q8H [facility] Last Admin: 01/27/17 11:45 Dose: 100 mls/hr Lactated Ringer's (Lactated Ringer's 500ml) 500 mls @ 75 mls/hr IV .Q6H40M [facility] Last Admin: 01/27/17 07:39 Dose: 75 mls/hr Insulin Aspart (Novolog) 0 unit SC ACHS [facility] PRN Reason: Protocol Last Admin: 01/27/17 11:30 Dose: Not Given Lactobacillus Acidophilus (Bacid Acidophilus) 1 cap PO DAILY [facility] Last Admin: 01/27/17 11:00 Dose: 1 cap Lactulose (Enulose) 20 gm PO TID [facility] Last Admin: 01/27/17 13:12 Dose: Not Given Lidocaine HCl (Xylocaine 2%) 0 ea TOP TID PRN PRN Reason: Pain, Mild (1-3) Metoclopramide HCl (Reglan) 5 mg IVP Q6 [facility] Last Admin: 01/27/17 11:35 Dose: 5 mg Metoprolol Succinate (Toprol Xl) 50 mg PO DAILY [facility] Last Admin: 01/23/17 10:03 Dose: 50 mg Metoprolol Succinate (Toprol Xl) 50 mg PO DAILY [facility] Last Admin: 01/27/17 11:00 Dose: 50 mg Multivitamins (Hexavitamin) 1 tab PO DAILY [facility] Last Admin: 01/27/17 11:00 Dose: 1 tab Oxycodone/Acetaminophen (Percocet 5/325 Mg Tab) 1 tab PO Q6H PRN PRN Reason: Agitation Stop: 01/28/17 17:31 Last Admin: 01/27/17 08:35 Dose: 1 tab Rosuvastatin Calcium (Crestor) 20 mg PO HS [facility] Last Admin: 01/26/17 22:16 Dose: 20 mg Results - Vital Signs Recent Vital Signs: Last Vital Signs Temp 97.6 F 01/26/17 23:05 Pulse 56 L 01/27/17 03:52 Resp 20 01/26/17 23:05 BP 131/63 01/26/17 23:05 Pulse Ox 97 01/26/17 23:05 - Labs Result Diagrams: 01/27/17 08:22 01/27/17 08:22 Labs: Laboratory Results - last 24 hr 01/25/17 01/26/17 01/26/17 20:21 17:10 20:48 WBC RBC Hgb Hct MCV MCH MCHC RDW Plt Count MPV Neut % (Auto) Lymph % (Auto) Lares % (Auto) Eos % (Auto) Baso % (Auto) Neut # Lymph # Lares # Eos # Baso # Sodium Potassium Chloride Carbon Dioxide Anion Gap BUN Creatinine Est GFR ( Amer) Est GFR (Non-Af Amer) POC Glucose (mg/dL) 90 176 H Random Glucose Calcium CA 19-9 Antigen < 1.4 01/27/17 01/27/17 01/27/17 07:03 08:22 08:22 WBC 3.6 L RBC 5.06 Hgb 14.7 Hct 42.5 MCV 83.9 MCH 29.0 MCHC 34.5 RDW 12.9 Plt Count 155 MPV 8.2 Neut % (Auto) 64.0 Lymph % (Auto) 19.3 L Lares % (Auto) 12.3 H Eos % (Auto) 3.9 Baso % (Auto) 0.5 Neut # 2.3 Lymph # 0.7 L Lares # 0.4 Eos # 0.1 Baso # 0.0 Sodium 136 Potassium 4.1 Chloride 100 Carbon Dioxide 25 Anion Gap 15 BUN 23 H Creatinine 1.4 Est GFR ( Amer) > 60 Est GFR (Non-Af Amer) 53 POC Glucose (mg/dL) 149 H Random Glucose 127 H Calcium 8.7 CA 19-9 Antigen 01/27/17 12:09 WBC RBC Hgb Hct MCV MCH MCHC RDW Plt Count MPV Neut % (Auto) Lymph % (Auto) Lares % (Auto) Eos % (Auto) Baso % (Auto) Neut # Lymph # Lares # Eos # Baso # Sodium Potassium Chloride Carbon Dioxide Anion Gap BUN Creatinine Est GFR ( Amer) Est GFR (Non-Af Amer) POC Glucose (mg/dL) 90 Random Glucose Calcium CA 19-9 Antigen
--- NOTE | 2017-01-26 18:00 | CARD ---
APPROVED REPORT EKG Measurement Heart [id number] <Conclusion> Normal sinus rhythm Normal ECG
--- NOTE | 2017-01-26 20:41 | PN ---
DATE: SUBJECTIVE: The patient underwent colonoscopy today and findings were consistent with internal and external hemorrhoids and an area of moderate congested mucosa was found in the descending colon. Biopsies were taken. A medium size anal fissure was found in the anal canal. PHYSICAL EXAMINATION VITAL SIGNS: Blood pressure 162/91, heart rate is 64, temperature is 98.6, respiration is 20. HEENT: Normocephalic. CHEST: Clear. HEART: S1, S2 regular. EXTREMITIES: No edema. LABORATORY DATA: SMA-7 is entirely within normal limits. Head CT scan without contrast revealed no acute intracranial abnormality, old lacunar infarct in the left thalamus. New change to the prior examination. ASSESSMENT: 1. Component of atypical chest pain, myocardial infarction is ruled out. 2. Status post dizziness, near syncope. 3. History of prostatic carcinoma, status post radiation. 4. Hypertension and diabetes mellitus. RECOMMENDATIONS: Resume current Toprol and Zebeta. The echocardiographic study revealed normal ejection fraction. No pulmonary hypertension. Chapito Tripp MD
--- NOTE | 2017-01-26 21:44 | CP.PCM.PN ---
Subjective - Date & Time of Evaluation Date of Evaluation: 01/26/17 Time of Evaluation: 09:25 - Subjective Subjective: pt is seen and examined, eooou3t up consult is dictated #[id number] Objective - Vital Signs/Intake and Output Vital Signs (last 24 hours): Temp Pulse Resp BP Pulse Ox 98.6 F 64 20 162/91 H 98 01/26/17 15:35 01/26/17 15:35 01/26/17 15:35 01/26/17 15:35 01/26/17 15:35 Intake and Output: 01/26/17 01/27/17 18:59 06:59 Intake Total 200 Balance 200 - Medications Medications: Current Medications Acetaminophen (Tylenol 325mg Tab) 650 mg PO Q6 PRN PRN Reason: Pain, severe (8-10) Last Admin: 01/26/17 16:25 Dose: 650 mg Aspirin (Aspirin Chewable) [address] [facility] Last Admin: 01/26/17 10:59 Dose: Not Given Bisoprolol Fumarate (Zebeta) [address] [facility] Last Admin: 01/26/17 11:00 Dose: Not Given Clopidogrel Bisulfate (Plavix) [address] [facility] Last Admin: 01/26/17 10:59 Dose: Not Given Docusate Sodium (Colace) [address] [facility] Last Admin: 01/26/17 17:53 Dose: 100 mg Hydrocortisone (Anusol-Hc) [address] [facility] Last Admin: 01/26/17 14:00 Dose: 25 mg Metronidazole (Flagyl) 500 mg in 100 mls @ 100 mls/hr IVPB Q8H [facility] Last Admin: 01/26/17 12:00 Dose: 100 mls/hr Lactated Ringer's (Lactated Ringer's 500ml) 500 mls @ 75 mls/hr IV .Q6H40M [facility] Last Admin: 01/26/17 13:00 Dose: 75 mls/hr Insulin Aspart (Novolog) 0 unit SC ACHS [facility] PRN Reason: Protocol Last Admin: 01/26/17 16:30 Dose: Not Given Lactobacillus Acidophilus (Bacid Acidophilus) [address] [facility] Last Admin: 01/26/17 10:59 Dose: Not Given Lactulose (Enulose) [address] [facility] Last Admin: 01/26/17 14:46 Dose: Not Given Metoclopramide HCl (Reglan) [address] [facility] Last Admin: 01/26/17 17:54 Dose: 5 mg Metoprolol Succinate (Toprol Xl) [address] [facility] Last Admin: 01/23/17 10:03 Dose: 50 mg Metoprolol Succinate (Toprol Xl) [address] [facility] Last Admin: 01/26/17 16:26 Dose: 50 mg Multivitamins (Hexavitamin) [address] [facility] Last Admin: 01/26/17 11:00 Dose: Not Given Oxycodone/Acetaminophen (Percocet 5/325 Mg Tab) 1 tab PO Q6H PRN PRN Reason: Agitation Stop: 01/28/17 17:31 Last Admin: 01/26/17 17:53 Dose: 1 tab Rosuvastatin Calcium (Crestor) [address] [facility] Last Admin: 01/25/17 21:01 Dose: 20 mg - Labs Labs: 01/24/17 07:12 01/26/17 10:35 PT 11.4 SECONDS (9.7-12.2) 01/22/17 15:09 INR 1.0 01/22/17 15:09 APTT 27 SECONDS (21-34) 01/22/17 15:09
[2017-01-27] MEDS: Lactated Ringer's 500 ML IV SCH ×2 (01:35→07:39)
--- NOTE | 2017-01-27 02:00 | PN ---
DAILY PROGRESS NOTE SUBJECTIVE: The patient is seen today, 01/26/2017, post-colonoscopy. He is not in any cardiopulmonary distress. PHYSICAL EXAMINATION: VITAL SIGNS: Blood pressure is 150/90, temperature 98.5, respiratory rate 20, and pulse 60. HEENT: Pupils equal, reactive to light. Normal-appearing mucosa of the conjunctivae, oropharyngeal and nasal membrane mucosa. NECK: Supple. No JVD. No carotid bruit. No lymph node. No thyromegaly. CHEST AND LUNGS: Bilaterally symmetrical expansion. Good air exchange. No rales. No rhonchi. CARDIOVASCULAR: PMI not localized. S1 and S2. No additional sounds. ABDOMEN: Normoactive bowel sounds. No tenderness. No organomegaly. No masses. EXTREMITIES: No cyanosis. No clubbing. No edema. 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 No neurological deficit could be appreciated. Colonoscopy showed there is anal fissure and internal hemorrhoids. ASSESSMENT: 1. Status post acute renal failure. 2. Anal fissure with severe anal pain. 3. Uncontrolled hypertension. 4. Type 2 diabetes mellitus. 5. Coronary artery disease. PLAN: Colorectal surgery consultation. Resume the patient's home medications, including antihypertensive medicine and follow GI and Cardiology recommendations. Rach Friedman MD
[2017-01-27] MEDS: metroNIDAZOLE IV 500 mg/100 ml 500 MG/100 ML BAG IVPB SCH ×3 (03:31→18:38)
[2017-01-27] MEDS: (Novolog) Insulin Aspart, Recombinant 100 u/ml 10 ml vial SC SCH ×3 (07:40→16:30)
[2017-01-27] MEDS: Oxycodone/Acetaminophen 5/325 mg Tab PO PRN (08:35)
[2017-01-27 08:37] LABS: BASO % 0.5 % (0.0-2.0); EOS # 0.1 K/uL (0.0-0.7); EOS % 3.9 % (0.0-4.0); HEMATOCRIT 42.5 % (35.0-51.0); LYMPH # 0.7 K/uL (1.0-4.3); LYMPH % 19.3 % (20.0-40.0); MEAN CELL VOLUME 83.9 fL (80.0-94.0); MEAN CORPUSCULAR HGB CONC 34.5 g/dL (33.0-37.0); MEAN PLATELET VOLUME 8.2 fL (7.2-11.7); MONO # 0.4 K/uL (0.0-0.8); MONO % 12.3 % (0.0-10.0); NRBC % 0.2 % (0.0-2.0); RED CELL DISTRIBUTION WIDTH 12.9 % (11.5-14.5); WHITE BLOOD COUNT 3.6 K/uL (4.8-10.8)
[2017-01-27 08:54] LABS: CHLORIDE 100 mmol/L (98-107); POTASSIUM 4.1 mmol/L (3.6-5.2); SODIUM 136 mmol/L (132-148)
[2017-01-27 08:56] LABS: GFR AFRICAN-AMERICAN > 60
[2017-01-27 08:57] LABS: BLOOD UREA NITROGEN 23 mg/dL (9-20); CALCIUM 8.7 mg/dl (8.6-10.4); CARBON DIOXIDE 25 mmol/L (22-30); GLUCOSE,RANDOM 127 mg/dL (75-110)
[2017-01-27] MEDS ORDERED: Lidocaine 2% Jelly (30 ml) TOP PRN (09:48)
[2017-01-27] MEDS: Metoprolol Succinate 50 mg XL Tab PO SCH (11:00)
[2017-01-27] MEDS: Multiple Vitamins Tab PO SCH (11:00)
[2017-01-27] MEDS: Lactobacillus Acidophilus 500 MU Cap PO SCH (11:00)
--- NOTE | 2017-01-27 11:23 | PN ---
FOLLOWUP RENAL CONSULTATION DATE: LOCATION: The patient is located room in 652, bed A SUBJECTIVE: Mr. Ferro is a 51-year-old obese [place] male with a history of hypertension, BPH, prostate carcinoma, coronary artery disease, status post stents, who was admitted with difficulty to urinate and left flank pain with elevated BUN and creatinine and the patient was started on IV fluids. Serum creatinine improved nicely. The patient is not in acute distress. Denies any complaints for possible colonoscopy today. No chest pain. No palpitation. No fever. No cough. PHYSICAL EXAMINATION VITAL SIGNS: His vital signs this morning are blood pressure 133/83, pulse of 78, respirations of 20, temperature of 98.3, and saturation of 96%. Height is 5 feet 6 inches and weight is 210 pounds. GENERAL: Mr. Ferro is a 51-year-old male, moderately built and moderately nourished, not in distress. HEENT: Pupils are normal, reactive to light and accommodation. Conjunctivae are pink. Sclerae are anicteric. Tongue is moist. Trachea is midline. LUNGS: Symmetric on both sides. Bilateral breath sounds present. Clear on auscultation. CARDIOVASCULAR SYSTEM: [place] at the fifth intercostal space, midclavicular line. S1 and S2 audible. No murmur or gallop. ABDOMEN: Normal in appearance, soft, and tympanic. No guarding. No rigidity. No hepatosplenomegaly. CENTRAL NERVOUS SYSTEM: The patient is alert, awake, and oriented x3. Nonfocal on examination. Cranial nerves II through XII grossly intact. Sensory and motor system is within normal limits. EXTREMITIES: No cyanosis. No clubbing. No edema. MEDICATIONS: His current medications include as follows, aspirin 81 mg daily, Bacid one capsule p.o. daily, Colace 100 mg p.o. b.i.d., Crestor 20 mg p.o. at bedtime, lactulose 20 g p.o. t.i.d., Flagyl 500 mg IV q. 8 hours, multivitamin one tablet daily, Percocet one tablet q. 6 hours p.r.n., Plavix 75 mg daily, Reglan 5 mg q. 6 hours, metoprolol on hold, Zebeta 5 mg p.o. daily, and Tylenol. LABORATORY DATA: Include as follows, as of 01/26/2017, sodium 136, potassium 3.6, chloride 101, CO2 of 24, BUN 18, creatinine 1.2, glucose 109, and calcium 8.7. SUMMARY: In summary, Mr. Ferro is a 51-year-old middle-aged obese [place] male with history of hypertension, benign prostatic hypertrophy, hyperlipidemia, coronary artery disease, status post stents, prostate carcinoma, status post radiation therapy with increased blood urea nitrogen and creatinine and difficulty to urinate and left flank pain. Urine culture was negative. ASSESSMENT: Acute renal failure, most likely secondary to intravascular volume depletion, renal function improved with gentle intravenous hydration. No further workup is needed for the renal at this time. Renal function is normal. We will sign up the case. Thank you for allowing me to participate in your patient's care. Aliya Livingston MD
--- NOTE | 2017-01-27 16:23 | CP.PCM.PN ---
Subjective - Date & Time of Evaluation Date of Evaluation: 01/27/17 Time of Evaluation: 07:00 - Subjective Subjective: SURGERY PROGRESS NOTE FOR DR. NIEVES Patient seen and examined at bedside. He reports a lot of pain with bowel movements. He states that he wants his anal fissure fixed. Objective - Vital Signs/Intake and Output Vital Signs (last 24 hours): Temp Pulse Resp BP Pulse Ox 97.6 F 56 L 20 131/63 97 01/26/17 23:05 01/27/17 03:52 01/26/17 23:05 01/26/17 23:05 01/26/17 23:05 Intake and Output: 01/27/17 01/27/17 06:59 18:59 Intake Total 950 Balance 950 - Medications Medications: Current Medications Acetaminophen (Tylenol 325mg Tab) 650 mg PO Q6 PRN PRN Reason: Pain, severe (8-10) Last Admin: 01/26/17 16:25 Dose: 650 mg Aspirin (Aspirin Chewable) 81 mg PO DAILY [facility] Last Admin: 01/27/17 11:00 Dose: 81 mg Bisoprolol Fumarate (Zebeta) 5 mg PO DAILY [facility] Last Admin: 01/27/17 11:02 Dose: 5 mg Clopidogrel Bisulfate (Plavix) 75 mg PO DAILY [facility] Last Admin: 01/27/17 11:00 Dose: 75 mg Docusate Sodium (Colace) 100 mg PO BID [facility] Last Admin: 01/27/17 11:00 Dose: 100 mg Hydrocortisone (Anusol-Hc) 25 mg RC TID [facility] Last Admin: 01/27/17 13:11 Dose: Not Given Metronidazole (Flagyl) 500 mg in 100 mls @ 100 mls/hr IVPB Q8H [facility] Last Admin: 01/27/17 11:45 Dose: 100 mls/hr Lactated Ringer's (Lactated Ringer's 500ml) 500 mls @ 75 mls/hr IV .Q6H40M [facility] Last Admin: 01/27/17 07:39 Dose: 75 mls/hr Insulin Aspart (Novolog) 0 unit SC ACHS [facility] PRN Reason: Protocol Last Admin: 01/27/17 11:30 Dose: Not Given Lactobacillus Acidophilus (Bacid Acidophilus) 1 cap PO DAILY [facility] Last Admin: 01/27/17 11:00 Dose: 1 cap Lactulose (Enulose) 20 gm PO TID [facility] Last Admin: 01/27/17 13:12 Dose: Not Given Lidocaine HCl (Xylocaine 2%) 0 ea TOP TID PRN PRN Reason: Pain, Mild (1-3) Metoclopramide HCl (Reglan) 5 mg IVP Q6 [facility] Last Admin: 01/27/17 11:35 Dose: 5 mg Metoprolol Succinate (Toprol Xl) 50 mg PO DAILY [facility] Last Admin: 01/23/17 10:03 Dose: 50 mg Metoprolol Succinate (Toprol Xl) 50 mg PO DAILY [facility] Last Admin: 01/27/17 11:00 Dose: 50 mg Multivitamins (Hexavitamin) 1 tab PO DAILY [facility] Last Admin: 01/27/17 11:00 Dose: 1 tab Oxycodone/Acetaminophen (Percocet 5/325 Mg Tab) 1 tab PO Q6H PRN PRN Reason: Agitation Stop: 01/28/17 17:31 Last Admin: 01/27/17 08:35 Dose: 1 tab Rosuvastatin Calcium (Crestor) 20 mg PO HS [facility] Last Admin: 01/26/17 22:16 Dose: 20 mg - Labs Labs: 01/27/17 08:22 01/27/17 08:22 PT 11.4 SECONDS (9.7-12.2) 01/22/17 15:09 INR 1.0 01/22/17 15:09 APTT 27 SECONDS (21-34) 01/22/17 15:09 - Constitutional Appears: Non-toxic, No Acute Distress - Respiratory Exam Respiratory Exam: NORMAL BREATHING PATTERN. absent: Respiratory Distress - Cardiovascular Exam Cardiovascular Exam: +S1, +S2 - GI/Abdominal Exam GI & Abdominal Exam: Soft. absent: Distended, Firm, Guarding, Rigid, Tenderness Assessment and Plan - Assessment and Plan (Free Text) Assessment: 51yo M with PMHx of HTN, DM, prostate cancer s/p radiation who was found to have anal fissure and hemorrhoids on colonoscopy - Afebrile, VSS - OR tomorrow for EUA and likely sphincterotomy - NPO past midnight - Sitz baths - Lidocaine jelly on anal area - Discussed plan with Dr. Chaz Medellin PGY-3
--- NOTE | 2017-01-27 17:20 | PN ---
DATE: SUBJECTIVE: The patient denies any chest pain. He is still experiencing rectal pain. PHYSICAL EXAMINATION: VITAL SIGNS: Blood pressure 160/106, heart rate 66, temperature 97.6 and respirations 20. HEENT: Normocephalic. CHEST: Clear. HEART: S1 and S2 regular. EXTREMITIES: No edema. LABORATORY DATA: Today's hemoglobin and hematocrit are 14.7 and 42.5, white count is 3.6 and platelet count 155,000. SMA-7 is within normal limits except glucose of 127 and BUN of 23. The patient was evaluated yesterday by Dr. Ware's certified ophthalmic surgical assistant. ASSESSMENT: 1. Hypertension and diabetes mellitus. 2. Questionable history of Crohn's disease. 3. Anal fissure. 4. History of prostatic carcinoma, status post recent radiation. RECOMMENDATIONS: Continue aspirin 81 mg once a day, Crestor 20 mg once a day, IV Flagyl 500 mg q. 8 hours, Plavix 75 mg once a day, Toprol-XL 50 mg once a day and Zebeta 5 mg once a day. Chapito Tripp MD
[2017-01-27] MEDS: Lidocaine 2% Jelly (30 ml) TOP SCH (18:29)
--- NOTE | 2017-01-27 20:47 | PN ---
DATE: LOCATION: [facility], bed A. SUBJECTIVE: This 51-year-old male seen and examined in rounds with persistent complaint of rectal pain, lower abdominal pain. No reported active bleeding, hence the patient is seen by the surgical rn on the case as well as the knowledge management consultant, their notes are appreciated. Most recent lab results showed normal CBC with mildly elevated BUN, but normal blood glucose level. PHYSICAL EXAMINATION GENERAL: A 51-year-old male. VITAL SIGNS: Afebrile with pulse of 58, respiratory rate 20-22, blood pressure 150/66. HEENT: Showed pale, dry oral mucous membranes. Nonicteric sclerae. LUNGS: Few scattered crepitation. Decreased air entry at bases. HEART: Positive S1 and S2. ABDOMEN: Soft, bowel sounds are present. No mass or organomegaly. No rebound, tenderness or guarding. RECTAL: The patient refused. EXTREMITIES: Without significant edema, clubbing, or cyanosis. NEUROLOGIC: No new reported neurological deficits, sensory or motor. IMPRESSION: 1. Anal fissure. 2. Internal hemorrhoids. 3. Hypertension with diabetes mellitus by history. 4. History of prostatic cancer status post recent radiation treatment. SUGGESTIONS: 1. Continue current management. 2. IV antibiotics. 3. Surgical followup as advised. 4. Further recommendation to follow. Mariusz Evans MD cc: Mariusz Evans MD
--- NOTE | 2017-01-28 00:17 | PN ---
DATE: 01/27/2017 DAILY PROGRESS NOTE SUBJECTIVE: The patient is seen today, 01/27/2017. He still has perianal pain. OBJECTIVE: VITAL SIGNS: Blood pressure is 153/80, temperature 97.4, respiratory rate 20, and pulse 52. HEENT: Pupils are equal and reactive to light. Normal-appearing mucosa of the conjunctivae, oropharyngeal and nasal membrane mucosa. NECK: Supple. No JVD. No carotid bruits. No lymph node. No thyromegaly. CHEST AND LUNGS: Bilateral symmetrical expansion. Good air exchange. No rales. No rhonchi. CARDIOVASCULAR SYSTEM: PMI not localized. S1 and S2. No additional sounds. ABDOMEN: Normoactive bowel sounds. No tenderness. No organomegaly. No masses. EXTREMITIES: No cyanosis. No clubbing. No edema. CENTRAL NERVOUS SYSTEM: Alert, awake, and oriented x3. No neurological deficit could be appreciated. ASSESSMENT: 1. Status post acute kidney injury. 2. Hypertension. 3. Coronary artery disease. 4. Type 2 diabetes mellitus. 5. Anal fissure. PLAN: Patient to be seen by Dr. Ware for surgical consult and he is scheduled for examination under anesthesia and possible sphincterotomy. Continue current medications. Rach Friedman MD
[2017-01-28] MEDS: metroNIDAZOLE IV 500 mg/100 ml 500 MG/100 ML BAG IVPB SCH ×3 (03:52→18:56)
[2017-01-28] MEDS: Lactated Ringer's 500 ML IV SCH (05:14)
[2017-01-28] MEDS: Metoprolol Succinate 50 mg XL Tab PO SCH ×2 (06:59→10:00)
[2017-01-28] MEDS: (Novolog) Insulin Aspart, Recombinant 100 u/ml 10 ml vial SC SCH ×4 (07:30→22:14)
[2017-01-28] MEDS: Multiple Vitamins Tab PO SCH (10:00)
[2017-01-28] MEDS: Lidocaine 2% Jelly (30 ml) TOP SCH ×3 (10:00→17:23)
[2017-01-28] MEDS: Lactobacillus Acidophilus 500 MU Cap PO SCH (10:00)
--- NOTE | 2017-01-28 14:28 | CARD ---
APPROVED REPORT EKG Measurement Heart [id number] <Conclusion> Poor data quality, interpretation may be adversely affected Normal sinus rhythm Normal ECG
[2017-01-28] MEDS ORDERED: Midazolam 2 MG/2 ML VIAL ONE (14:50)
[2017-01-28] MEDS ORDERED: Propofol 10 mg/ml Inj (20 ML) ONE (14:50)
[2017-01-28] MEDS ORDERED: Bupivacaine 0.5% Inj(30mL) ONE (14:58)
[2017-01-28] MEDS ORDERED: Lactated Ringer's 1,000 ML IV ONE (15:12)
[2017-01-28] MEDS ORDERED: Bupivacaine 0.5%/Epi 1:200,000 (10 ML SOL) ONE (15:22)
--- NOTE | 2017-01-28 16:10 | PCM.SURG1 ---
Surgeon's Initial Post Op Note - Surgeon's Notes Surgeon: Chaz Ornamenter Hand: Bang PGY3 Type of Anesthesia: General LMA, Local Pre-Operative Diagnosis: Anal fissure. Skin tag L buttock Operative Findings: Posterior anal fissure, tight sphincter Post-Operative Diagnosis: same Operation Performed: Anal/rectal dilation w. lateral internal sphincterotomy, and removal of skin tag Specimen/Specimens Removed: skin tag Estimated Blood Loss: EBL {In ML}: 10 Blood Products Given: N/A Drains Used: No Drains Post-Op Condition: Good Date of Surgery/Procedure: 01/28/17 Time of Surgery/Procedure: 16:10
[2017-01-28] MEDS ORDERED: HYDROmorphone 0.5 mg/0.5 ml ISec IVP PRN (16:20)
[2017-01-28] MEDS ORDERED: Lactated Ringer's 1,000 ML IV SCH (16:30)
--- NOTE | 2017-01-28 16:37 | PN ---
DATE: LOCATION: [facility], bed A. SUBJECTIVE: This is a 51-year-old male seen and examined in rounds without reported significant clinical changes, but complaint of rectal pain, seen by the application packaging consultant as well as the ruby on rails consultant. Pathology reported from the colonoscopy. Pathology showed no evidence of active colitis or dysplasia. The patient is to be scheduled for potential hemorrhoidectomy. Today's lab show blood glucose level 108. PHYSICAL EXAMINATION: GENERAL: A 51-year-old male, awake, alert and oriented. Complaining of severe rectal pain. VITAL SIGNS: Afebrile, blood pressure 140/90, respiratory rate 20-22, heart rate 72. HEENT: Show pale dry oral mucoid membrane. Nonicteric sclerae. LUNGS: Few scattered crepitations, decreased air entry at bases. HEART: Positive S1 and S2. ABDOMEN: Soft. Bowel sounds are present. RECTAL: The patient refused. EXTREMITIES: Without edema, clubbing, or cyanosis. NEUROLOGIC: No new reported neurological deficits, sensory or motor. IMPRESSION: 1. Anal fissure with internal hemorrhoids. 2. Hypertension with coronary artery disease. 3. Diabetes mellitus. SUGGESTIONS: 1. Continue current management. 2. The patient for potential surgical interference. Mariusz Evans MD cc: Mariusz Evans MD Patient chart
--- NOTE | 2017-01-28 16:49 | PN ---
CARDIOLOGY FOLLOWUP SUBJECTIVE: The patient denies any chest pain or shortness of breath. PHYSICAL EXAMINATION VITAL SIGNS: Blood pressure 144/98, heart rate 75, temperature 98, respirations 20. HEENT: Normocephalic. CHEST: Clear. HEART: S1 and S2 regular. ABDOMEN: Soft. EXTREMITIES: No edema. ASSESSMENT: 1. History of coronary artery disease. The patient is currently chest pain free and there are no ischemic EKG changes noted. 2. Uncontrolled hypertension and uncontrolled diabetes mellitus. 3. Anal fissure. The patient underwent today under general anesthesia lateral subcutaneous sphincterotomy and rectal dilatation and excision of skin tag. RECOMMENDATIONS: Resume aspirin 81 mg once a day, Crestor at 20 mg once a day, resume telemetry, and obtain 12-lead EKG. Chapito Tripp MD
[2017-01-28] MEDS ORDERED: Lactated Ringer's 500 ML IV ONE (17:45)
[2017-01-28 19:30] VITALS: RESP 20
[2017-01-28] MEDS ORDERED: Oxycodone/Acetaminophen 5/325 mg Tab PO PRN ×2 (22:00→22:07)
[2017-01-29] MEDS: metroNIDAZOLE IV 500 mg/100 ml 500 MG/100 ML BAG IVPB SCH ×2 (03:12→10:25)
--- NOTE | 2017-01-29 03:12 | PN ---
DAILY PROGRESS NOTE DATE: 01/28/2017 SUBJECTIVE: The patient is seen today 01/28/2017. The patient still has perianal pain. PHYSICAL EXAMINATION: VITAL SIGNS: Blood pressure is 150/99, temperature 97.2, respiratory rate 12, and pulse 71. HEENT: Pupils are equal and reactive to light. Normal appearing mucosa of the conjunctivae, oropharyngeal, and nasal membrane mucosa. NECK: Supple. No JVD. No carotid bruits. No lymph node. No thyromegaly. CHEST AND LUNGS: Bilateral symmetrical expansion. Good air exchange. No rales. No rhonchi. CARDIOVASCULAR: PMI not localized. S1 and S2. No additional sounds. ABDOMEN: Normoactive bowel sounds. No tenderness. No organomegaly. No masses. EXTREMITIES: No cyanosis, no clubbing, and no edema. CENTRAL NERVOUS SYSTEM: Alert, awake, and oriented x3. No neurological deficits could be appreciated. ASSESSMENT: 1. Status post acute renal failure. 2. Perianal fissure. 3. Type 2 diabetes mellitus. 4. Coronary artery disease. 5. Cancer of the prostate, statu post radiation therapy. PLAN: Continue current management and follow and the patient for OR today under anesthesia examination with possible sphincterotomy for management of anal fissure. [facility] MD Elder
--- NOTE | 2017-01-29 03:44 | OP ---
PROCEDURE DATE: 01/28/2017 PREOPERATIVE DIAGNOSES: Rectal pain, rectal fissure. PROCEDURE CARRIED OUT: Exam under anesthesia, excision of skin tag, and left-sided lateral subcutaneous sphincterotomy with rectal dilatation. SURGEON: Marc Ware Jr., MD VETERINARY ATTENDANT: Dr. Cuenca. ANESTHESIOLOGIST: TYPE OF ANESTHESIA: Local sedation. INDICATIONS: The patient is a middle-aged man with severe rectal pain. OPERATIVE FINDINGS: There was rectal fissure between 5 and 6 o'clock. The patient is in lithotomy position. The left-sided lateral subcutaneous sphincterotomy was carried out with good results and no perforation in the rectal mucosa. In addition, the patient's skin tag was excised at the patient's request. Rectal dilatation was carried out with two large fingers. There were no operative complications or problems, the wound was left open. A small dressing applied. OPERATION CARRIED OUT: Exam under anesthesia. Rectal dilatation with lateral subcutaneous sphincterotomy and excision of adjacent skin tag. Marc Ware Jr., MD cc: Rach Friedman MD
[2017-01-29] MEDS: (Novolog) Insulin Aspart, Recombinant 100 u/ml 10 ml vial SC SCH ×2 (07:49→11:30)
[2017-01-29 08:36] VITALS: BP 125/86; PULSE 72; TEMP 98; O2SAT 98
--- NOTE | 2017-01-29 09:04 | CP.PCM.PN ---
Subjective - Date & Time of Evaluation Date of Evaluation: 01/29/17 Time of Evaluation: 09:00 - Subjective Subjective: Surgery: Dr. Ware Pt seen and examined. Resting comfortably in bed. Has mild discomfort. Overall he is doing well and is in good spirits. Objective - Vital Signs/Intake and Output Vital Signs (last 24 hours): Temp Pulse Resp BP Pulse Ox 98.0 F 72 20 125/86 98 01/29/17 08:15 01/29/17 08:15 01/29/17 08:15 01/29/17 08:15 01/29/17 08:15 Intake and Output: 01/29/17 01/29/17 06:59 18:59 Intake Total 500 Balance 500 - Medications Medications: Current Medications Acetaminophen (Tylenol 325mg Tab) 650 mg PO Q6 PRN PRN Reason: Pain, Mild (1-3) Aspirin (Aspirin Chewable) 81 mg PO DAILY [facility] Last Admin: 01/28/17 10:00 Dose: Not Given Bisoprolol Fumarate (Zebeta) 5 mg PO DAILY [facility] Last Admin: 01/28/17 10:00 Dose: Not Given Clopidogrel Bisulfate (Plavix) 75 mg PO DAILY [facility] Last Admin: 01/28/17 10:00 Dose: Not Given Diphenhydramine HCl (Benadryl) 50 mg PO Q8 PRN PRN Reason: Itching / Pruritus Last Admin: 01/28/17 22:18 Dose: 50 mg Docusate Sodium (Colace) 100 mg PO TID [facility] Last Admin: 01/28/17 17:23 Dose: Not Given Hydrocortisone (Anusol-Hc) 25 mg RC TID [facility] Last Admin: 01/28/17 17:22 Dose: Not Given Metronidazole (Flagyl) 500 mg in 100 mls @ 100 mls/hr IVPB Q8H [facility] Last Admin: 01/29/17 03:12 Dose: 100 mls/hr Lactated Ringer's (Lactated Ringer's 500ml) 500 mls @ 75 mls/hr IV .Q6H40M [facility] Last Admin: 01/28/17 05:14 Dose: Not Given Lactated Ringer's (Lactated Ringer's) 1,000 mls @ 150 mls/hr IV .Q6H40M [facility] Insulin Aspart (Novolog) 0 unit SC ACHS [facility] PRN Reason: Protocol Last Admin: 01/29/17 07:49 Dose: Not Given Lactobacillus Acidophilus (Bacid Acidophilus) 1 cap PO DAILY [facility] Last Admin: 01/28/17 10:00 Dose: Not Given Lactulose (Enulose) 20 gm PO TID [facility] Last Admin: 01/28/17 17:23 Dose: Not Given Lidocaine HCl (Xylocaine 2%) 0 ea TOP TID [facility] Last Admin: 01/28/17 17:23 Dose: Not Given Metoclopramide HCl (Reglan) 5 mg IVP Q6 [facility] Last Admin: 01/29/17 06:31 Dose: 5 mg Metoprolol Succinate (Toprol Xl) 50 mg PO DAILY [facility] Last Admin: 01/23/17 10:03 Dose: 50 mg Metoprolol Succinate (Toprol Xl) 50 mg PO DAILY [facility] Last Admin: 01/28/17 10:00 Dose: Not Given Morphine Sulfate (Morphine) 2 mg IVP Q4 PRN PRN Reason: Pain, severe (8-10) Last Admin: 01/29/17 00:41 Dose: 2 mg Multivitamins (Hexavitamin) 1 tab PO DAILY [facility] Last Admin: 01/28/17 10:00 Dose: Not Given Oxycodone/Acetaminophen (Percocet 5/325 Mg Tab) 1 tab PO Q4H PRN PRN Reason: Pain, moderate (4-7) Stop: 01/31/17 22:01 Last Admin: 01/28/17 22:18 Dose: 1 tab Rosuvastatin Calcium (Crestor) 20 mg PO HS [facility] Last Admin: 01/28/17 22:18 Dose: 20 mg - Labs Labs: 01/27/17 08:22 01/27/17 08:22 PT 11.4 SECONDS (9.7-12.2) 01/22/17 15:09 INR 1.0 01/22/17 15:09 APTT 27 SECONDS (21-34) 01/22/17 15:09 - Constitutional Appears: Non-toxic, No Acute Distress - Head Exam Head Exam: ATRAUMATIC, NORMOCEPHALIC - Eye Exam Eye Exam: EOMI - ENT Exam ENT Exam: Mucous Membranes Moist - Neck Exam Neck Exam: Full ROM - Respiratory Exam Respiratory Exam: NORMAL BREATHING PATTERN. absent: Accessory Muscle Use, Respiratory Distress - GI/Abdominal Exam GI & Abdominal Exam: Soft. absent: Distended, Firm, Guarding, Rigid, Tenderness - Rectal Exam Additional comments: dressing in place, C/D/I - Extremities Exam Extremities Exam: absent: Calf Tenderness, Pedal Edema - Neurological Exam Neurological Exam: Alert, Awake, Oriented x3 Assessment and Plan - Assessment and Plan (Free Text) Assessment: 51M w. anal fissure, s/p digital rectal dilation and lateral internal sphincterotomy, POD#2 -percocet for pain -sitz bath TID -colace TID -lidocaine jelly PRN -no plans for further surigcal intervention -d/w attending Zemaitis PGY3
[2017-01-29] MEDS: Lidocaine 2% Jelly (30 ml) TOP SCH ×2 (10:00→14:36)
[2017-01-29] MEDS: Multiple Vitamins Tab PO SCH (10:26)
[2017-01-29] MEDS: Lactobacillus Acidophilus 500 MU Cap PO SCH (10:27)
[2017-01-29] MEDS: Metoprolol Succinate 50 mg XL Tab PO SCH (10:27)
--- NOTE | 2017-01-29 14:57 | CP.PCM.PN ---
Subjective - Date & Time of Evaluation Date of Evaluation: 01/29/17 Time of Evaluation: 14:00 - Subjective Subjective: patient seen today , states doing well, denies any chest pain, sob, abdominal pain, N/V/ a febrile s/p digital rectal dilation and lateral internal sphincterotomy, POD#2 Objective - Vital Signs/Intake and Output Vital Signs (last 24 hours): Temp Pulse Resp BP Pulse Ox 98.0 F 72 20 125/86 98 01/29/17 08:15 01/29/17 08:15 01/29/17 08:15 01/29/17 08:15 01/29/17 08:15 Intake and Output: 01/29/17 01/29/17 06:59 18:59 Intake Total 500 500 Balance 500 500 - Medications Medications: Current Medications Acetaminophen (Tylenol 325mg Tab) 650 mg PO Q6 PRN PRN Reason: Pain, Mild (1-3) Aspirin (Aspirin Chewable) 81 mg PO DAILY [facility] Last Admin: 01/29/17 10:26 Dose: 81 mg Bisoprolol Fumarate (Zebeta) 5 mg PO DAILY [facility] Last Admin: 01/29/17 10:30 Dose: 5 mg Clopidogrel Bisulfate (Plavix) 75 mg PO DAILY [facility] Last Admin: 01/29/17 10:26 Dose: 75 mg Diphenhydramine HCl (Benadryl) 50 mg PO Q8 PRN PRN Reason: Itching / Pruritus Last Admin: 01/28/17 22:18 Dose: 50 mg Docusate Sodium (Colace) 100 mg PO TID [facility] Last Admin: 01/29/17 14:33 Dose: 100 mg Hydrocortisone (Anusol-Hc) 25 mg RC TID [facility] Last Admin: 01/29/17 14:33 Dose: Not Given Metronidazole (Flagyl) 500 mg in 100 mls @ 100 mls/hr IVPB Q8H [facility] Last Admin: 01/29/17 10:25 Dose: 100 mls/hr Insulin Aspart (Novolog) 0 unit SC ACHS [facility] PRN Reason: Protocol Last Admin: 01/29/17 11:30 Dose: Not Given Lactobacillus Acidophilus (Bacid Acidophilus) 1 cap PO DAILY [facility] Last Admin: 01/29/17 10:27 Dose: 1 cap Lactulose (Enulose) 20 gm PO TID [facility] Last Admin: 01/29/17 14:34 Dose: Not Given Lidocaine HCl (Xylocaine 2%) 0 ea TOP TID [facility] Last Admin: 01/29/17 14:36 Dose: Not Given Metoclopramide HCl (Reglan) 5 mg IVP Q6 [facility] Last Admin: 01/29/17 14:00 Dose: Not Given Metoprolol Succinate (Toprol Xl) 50 mg PO DAILY [facility] Last Admin: 01/23/17 10:03 Dose: 50 mg Metoprolol Succinate (Toprol Xl) 50 mg PO DAILY [facility] Last Admin: 01/29/17 10:27 Dose: 50 mg Morphine Sulfate (Morphine) 2 mg IVP Q4 PRN PRN Reason: Pain, severe (8-10) Last Admin: 01/29/17 00:41 Dose: 2 mg Multivitamins (Hexavitamin) 1 tab PO DAILY [facility] Last Admin: 01/29/17 10:26 Dose: 1 tab Oxycodone/Acetaminophen (Percocet 5/325 Mg Tab) 1 tab PO Q4H PRN PRN Reason: Pain, moderate (4-7) Stop: 01/31/17 22:01 Last Admin: 01/28/17 22:18 Dose: 1 tab Rosuvastatin Calcium (Crestor) 20 mg PO HS [facility] Last Admin: 01/28/17 22:18 Dose: 20 mg - Labs Labs: 01/27/17 08:22 01/27/17 08:22 PT 11.4 SECONDS (9.7-12.2) 01/22/17 15:09 INR 1.0 01/22/17 15:09 APTT 27 SECONDS (21-34) 01/22/17 15:09 Assessment and Plan - Assessment and Plan (Free Text) Assessment: A/P 51 yr old male admitted for chest pain, /anal fissure troponin x 3 - negative s/p digital rectal dilation and lateral internal sphincterotomy, POD#2 D/W Dr. England , cleared for discharge from sugical standpoint an d f/u with Dr. England office in 1 week continue sitz bath D/W Dr. Elder farris for discharge home today and f/u wiht Dr. Elder butcher ein 1 week Dischargfe plan discussed with patient , who understands agrees with plan
--- NOTE | 2017-01-29 15:09 | PN ---
LOCATION: [facility], bed A. SUBJECTIVE: This is 51-year-old male seen and examined in rounds post surgically without significant clinical changes, but with intermittent period of rectal pain on and off. The entire chart is reviewed including but not limited to the most recent lab and radiology study results, current and the previous medication list, current and the previous medical events. Today's lab showed blood glucose level 151. It has to be mentioned that this case discussed at length with Dr. Friedman this morning. PHYSICAL EXAMINATION: GENERAL: A 51-year-old male. VITAL SIGNS: Afebrile with pulse 70, respiratory rate 20 to 22, blood pressure 120/84. HEENT: Showed pale dry oral mucoid membrane. Nonicteric sclerae. LUNGS: Few scattered crepitation. Decreased air entry at bases. HEART: Positive S1 and S2. ABDOMEN: Soft. Bowel sounds are present. RECTAL: clean dressing. EXTREMITIES: Without edema, clubbing or cyanosis. NEUROLOGIC: No reported neurological deficits, sensory or motor. IMPRESSION: 1. Anal fissure with status post lateral internal sphincterotomy. 2. Internal hemorrhoid by recent history. 3. Known history of hypertension, coronary artery disease. 4. Known history of diabetes mellitus. SUGGESTIONS: 1. Continue current management. 2. Flagyl p.o. 3. High-fiber diet. 4. Further recommendations to follow. Mariusz Evans MD cc: Mariusz Evans MD
--- NOTE | 2017-01-29 16:02 | PN ---
DATE: SUBJECTIVE: The patient denies any chest pain or shortness of breath. No reported arrhythmia. PHYSICAL EXAMINATION: VITAL SIGNS: Blood pressure 125/86, heart rate 72, temperature 98, respirations 20. HEENT: Normocephalic. NECK: No JVD. CHEST: Clear. ABDOMEN: Soft. EXTREMITIES: No edema. LABORATORY DATA: Yesterday's postoperative EKG revealed normal sinus rhythm. ASSESSMENT: 1. History of coronary artery disease. 2. Hypertension and diabetes mellitus. 3. Status post digital rectal dilation and lateral internal sphincterotomy. RECOMMENDATIONS: Continue current aspirin 81 mg once a day, Crestor 20 mg once a day, Flagyl 500 mg intravenously q. 8 hours, Plavix 75 mg once a day, Percocet one tablet q. 4 hours p.r.n., Toprol-XL 50 mg once a day, bisoprolol 5 mg once a day. Discontinue telemetry. Chapito Tripp MD
--- NOTE | 2017-01-29 23:46 | CARD ---
APPROVED REPORT EKG Measurement Heart [id number] <Conclusion> Poor data quality, interpretation may be adversely affected Normal sinus rhythm Normal ECG
--- NOTE | 2017-01-30 23:35 | DS ---
REASON FOR ADMISSION: This is a 51-year-old [place] male with history of multiple medical problems who was admitted with acute renal failure. COURSE OF HOSPITALIZATION: The patient was admitted to medical floor and he was started IV fluid. The patient home medications were resumed. The patient's serum creatinine was coming down. The patient had nephrology consultation done by Dr. Livingston and he felt it was likely to be secondary to side effects of medications. While he was in the hospital, the patient developed anal fissure, which was painful. The patient had a GI consult done by Dr. Torres and physical consult done by Dr. Ware. The patient underwent colonoscopy that showed anal fissure with internal hemorrhoids. The patient underwent sphincterotomy by Dr. Ware and this pain was relieved and the patient was discharged to continue sitz bath at home and to resume his home medications. FINAL DIAGNOSES: 1. Acute renal failure. 2. Coronary artery disease. 3. Hypertension. 4. Type 2 diabetes mellitus. 5. Anal fissure still, status post sphincterotomy. Rach Friedman MD
--- NOTE | 2017-01-31 04:08 | CON ---
DATE: 01/25/[address] Mariusz Evans to Dr. Rach Friedman. I was called for GI consultation by the admitting MD. Chart is reviewed, patient examined, all the valuable lab and radiology study results, current and previous medication list, current and previous medical events were reviewed. The patient is fully examined on 01/25/2017 as requested by the admitting medical staff. HISTORY OF PRESENT ILLNESS: This is a 51-year-old male who is admitted to the hospital through Emergency Room with multiple complaints, but mainly severe abdominal and rectal pain, change of bowel movement habit, occasional rectal bleeding, general weakness and malaise associated with some chest pain, especially on exertion with loss of appetite recently. No reported hematemesis, but dyspnea. PAST MEDICAL HISTORY: Including but not limited to: 1. Hypertension. 2. Coronary artery disease. 3. Hyperlipidemia. 4. Benign prostatic hypertrophy. The patient was apparently was treated with radiation therapy for his prostatic disorder. 5. Coronary artery disease status post cardiac stent insertion. 6. History of diabetes mellitus. FAMILY HISTORY: Unknown. SOCIAL HISTORY: No known history of cigarette smoking or alcohol intake.. CURRENT MEDICATIONS: Medication list was reviewed. ALLERGY TO MEDICATIONS: Unclear. After being admitted to the hospital, the patient was found to have normal CBC initially, but increased BUN to 33 with creatinine 2.6. PHYSICAL EXAMINATION GENERAL: A 51-year-old male complaining of severe rectal pain as well as lower abdominal pain. VITAL SIGNS: The patient is afebrile with pulse of 62, respiratory rate of 20 to 22, and blood pressure of 132/64. HEENT: Showed mildly dry oral mucosa. Nonicteric sclerae. LYMPH NODES: No lymphadenitis or lymphadenopathy. LUNGS: A few scattered crepitation, decreased air entry bilaterally. HEART: Positive S1 and S2. ABDOMEN: Soft with slight distention, mildly obese with ,mild tenderness. No mass or organomegaly. No rebound tenderness or guarding. RECTAL:. With severe tenderness. Positive for anal fissure as well as hemorrhoids, the patient was in severe pain and difficult to complete the entire rectal examination. EXTREMITIES: Without significant clubbing, cyanosis or edema. NEUROLOGIC: No reported new neurological deficits, sensory or motor. IMPRESSION: 1. Re-exacerbation of peptic ulcer disease. 2. Rectal pain with pressure, rectal bleeding, most likely secondary to anal fissure with internal hemorrhoids. 3. To rule out occult gastrointestinal malignancy. 4. Multiple past medical history including but not limited to hypertension, hyperlipidemia, coronary artery disease, diabetes mellitus, benign prostatic hypertrophy treated with radiation treatment. 5. Rule out radiation-induced collagenous colitis. SUGGESTIONS: 1. Agree with your plan. 2. Current medication. 3. Stool softener. 4. Proton pump inhibitor. 5. Flagyl IV until colonoscopy is to be scheduled for aggressive preparation. 6. Further recommendation to follow. Thank you for letting me to participate in your patient's case management and surgical consultation to be kept in mind. Case discussed at length with the . Mariusz Evans MD
== END 2017-01-29 16:53 | disposition home or self-care (01) | DRG 553 ==
LOC: C.ER 12:41 → C.9E 17:55 → C.6T 20:49
PROVIDERS: ADMIT Internal Medicine; ATTEND Internal Medicine
PROC: 0DBM8ZX Excision of Descending Colon, Via Natural or Artificial Opening Endoscopic, Diagnostic (ICD-10-PCS; 2017-01-26)
PROC: 0D7 Gastrointestinal System, Dilation (ICD-10-PCS; 2017-01-28)
PROC: 0D8R0ZZ Division of Anal Sphincter, Open Approach (ICD-10-PCS; principal; 2017-01-28 13:00)
PROC: 0DBP7ZZ Excision of Rectum, Via Natural or Artificial Opening (ICD-10-PCS; 2017-01-28 13:00)
DX: K60.0 Acute anal fissure (principal); N17.9 Acute kidney failure, unspecified; E11.22 Type 2 diabetes mellitus with diabetic chronic kidney disease; E11.65 Type 2 diabetes mellitus with hyperglycemia; E86.0 Dehydration; K62.5 Hemorrhage of anus and rectum; N18.2 Chronic kidney disease, stage 2 (mild); N12 Tubulo-interstitial nephritis, not specified as acute or chronic; I12.9 Hypertensive chronic kidney disease with stage 1 through stage 4 chronic kidney disease, or unspecified chronic kidney disease; I25.10 Atherosclerotic heart disease of native coronary artery without angina pectoris; E66.9 Obesity, unspecified; E78.00 Pure hypercholesterolemia, unspecified; K27.9 Peptic ulcer, site unspecified, unspecified as acute or chronic, without hemorrhage or perforation; K59.00 Constipation, unspecified; K64.4 Residual hemorrhoidal skin tags; Z85.46 Personal history of malignant neoplasm of prostate; K64.8 Other hemorrhoids; N40.0 Benign prostatic hyperplasia without lower urinary tract symptoms; Z92.3 Personal history of irradiation; Z95.5 Presence of coronary angioplasty implant and graft; Z79.4 Long term (current) use of insulin; Z68.33 Body mass index [BMI] 33.0-33.9, adult

== ENCOUNTER 2017-11-10 13:19 | Inpatient (IN) | payer MEDICAID ==
[2017-11-10 13:19] VITALS: BMI 32.1
--- NOTE | 2017-11-10 14:00 | C.PDOC ---
History Of Present Illness 52 Y/O MALE PRESENTS TO ED WITH C/O INSOMNIA, DECREASED APPETITE AND GENERAL MALAISE X 3 MONTHS. PATIENT IS COMPLIANT WITH MEDICATION AND DENIES FEVER, WEIGHT LOSS, FOCAL PAIN OR ANY OTHER COMPLAINTS AT THIS TIME. EXAM NAD NONTOXIC NEG Time Seen by Provider: 11/10/17 13:42 Chief Complaint (Nursing): High Blood Pressure History Per: Patient History/Exam Limitations: no limitations Onset/Duration Of Symptoms: Days Current Symptoms Are (Timing): Still Present Past Medical History Reviewed: Historical Data, Nursing Documentation, Vital Signs Vital Signs: Last Vital Signs Temp 98.4 F 11/10/17 17:34 Pulse 59 L 11/10/17 17:34 Resp 18 11/10/17 17:34 BP 148/78 11/10/17 17:34 Pulse Ox 100 11/10/17 17:47 - Medical History PMH: Benign Prostatic Hyperplasia, CAD, Diabetes, HTN, Hypercholesterolemia, Hyperlipidemia, Malignancy (Prostate. Treated with radiation therapy) Surgical History: Coronary Stent (X2) - [facility] Procedures DILATION OF RECTUM, VIA NATURAL OR ARTIFICIAL OPENING (01/22/17) DIVISION OF ANAL SPHINCTER, OPEN APPROACH (01/22/17) EXCISION OF DESCENDING COLON, ENDO, DIAGN (01/22/17) EXCISION OF RECTUM, VIA NATURAL OR ARTIFICIAL OPENING (01/22/17) Family History: States: No Known Family Hx - Social History Hx Tobacco Use: No Hx Alcohol Use: No Hx Substance Use: No - Immunization History Hx Tetanus Toxoid Vaccination: No Hx Influenza Vaccination: No Hx Pneumococcal Vaccination: No Review Of Systems Constitutional: Positive for: Malaise. Negative for: Fever, Chills Gastrointestinal: Negative for: Nausea, Vomiting, Abdominal Pain Skin: Negative for: Rash Psych: Positive for: Other (Insomnia) Physical Exam - Physical Exam Appears: Non-toxic, No Acute Distress Skin: Warm, Dry Head: Atraumatic, Normacephalic Oral Mucosa: Moist Neck: Normal ROM, Supple Cardiovascular: Rhythm Regular Respiratory: Normal Breath Sounds, No Rales, No Rhonchi, No Wheezing Gastrointestinal/Abdominal: Soft, No Tenderness, No Guarding, No Rebound Extremity: Normal ROM, Capillary Refill (<2 seconds) Neurological/Psych: Oriented x3, Normal Speech, Normal Cognition ED Course And Treatment - Laboratory Results Result Diagrams: 11/10/17 16:49 11/10/17 16:49 ECG: Interpreted By Me, Viewed By Me ECG Rhythm: Sinus Rhythm Rate From EC (BPM) O2 Sat by Pulse Oximetry: 100 (RA) Pulse Ox Interpretation: Normal Progress - Re-Evaluation Re-evaluation Note: 11/10/17 13:53 D/W DR LYN STATES SAW PT RECENTLY, CONCERNED FOR DEPRESSION. REQUESTS CRISIS EVAL 11/10/17 14:25 PT ADVISED PMD CONCERN FOR DEPRESSION, BECAME TEARFUL AND DESPONDANT. AGREES FOR CRISIS EVAL AND ADMISSION IF RECOMMENDED. D/W CRISIS, WILL EVAL 11/10/17 14:56 PT INCREASINGLY AGITATED, STATES NEEDS TO MOVE CAR AND HAS CONCERN FOR TICKET. CODE THOMSON ACTIVATED. UNABLE TO ALLOW ELOPEMENT DUE TO PREV STATED SUICIDAL IDEATION. PT UNCOOP W CRISIS EVAL, REFUSES TO STAY AND WANTS PMD EVAL. D/W DR LYN AWARE OF PT STATUS. AGREES W MGMT PLAN, WILL EVAL PT IN ER AROUND [phone] 11/10/17 17:47 MED CLEAR FOR PSYCH EVAL. PT COMFORTABLE NAD PENDING EVAL DR LYN - Data Reviewed Data Reviewed: Lab, EKG, Old records Disposition Counseled Patient/Family Regarding: Studies Performed, Diagnosis - Disposition Disposition: HOSPITALIZED Disposition Time: 18:38 Condition: STABLE Forms: [facility] (Polish) - POA Present On Arrival: None - Clinical Impression Clinical Impression: Depression - Scribe Statement The provider has reviewed the documentation as recorded by the Scribe Lona Mckeon All medical record entries made by the Scribe were at my direction and personally dictated by me. I have reviewed the chart and agree that the record accurately reflects my personal performance of the history, physical exam, medical decision making, and the department course for this patient. I have also personally directed, reviewed, and agree with the discharge instructions and disposition. Decision To Admit - Pt Status Changed To: Hospital Disposition Of: Inpatient - Admit Certification Admit to Inpatient:: After my assessment, the patient will require hospitalization for at least two midnights. This is because of the severity of symptoms shown, intensity of services needed, and/or the medical risk in this patient being treated as an outpatient. - InPatient: Physician Admission Certification: I certify that this patient requires 2 or more midnights of care for the following reason:: see note - . Bed Request Type: Psychiatry Admitting Physician: Ildefonso Kolb Patient Diagnosis: Depression
[2017-11-10 16:57] LABS: BASO % 0.5 % (0.0-2.0); EOS # 0.1 K/uL (0.0-0.7); EOS % 1.6 % (0.0-4.0); HEMOGLOBIN 15.8 g/dL (12.0-18.0); LYMPH # 1.4 K/uL (1.0-4.3); LYMPH % 32.4 % (20.0-40.0); MEAN CELL VOLUME 83.7 fL (80.0-94.0); MEAN CORPUSCULAR HEMOGLOBIN 28.9 pg (27.0-31.0); MEAN CORPUSCULAR HGB CONC 34.6 g/dL (33.0-37.0); MEAN PLATELET VOLUME 7.8 fL (7.2-11.7); MONO # 0.4 K/uL (0.0-0.8); NEUT # 2.3 K/uL (1.8-7.0); NEUT % 55.5 % (50.0-75.0); NRBC % 0.1 % (0.0-2.0); RBC 5.47 Mil/uL (4.40-5.90); RED CELL DISTRIBUTION WIDTH 13.7 % (11.5-14.5); WHITE BLOOD COUNT 4.2 K/uL (4.8-10.8)
[2017-11-10 17:13] LABS: URINE BILIRUBIN NEGATIVE (NEGATIVE); URINE BLOOD NEGATIVE (NEGATIVE); URINE CLARITY Clear (Clear); URINE COLOR Straw (YELLOW); URINE GLUCOSE (UA) NORMAL (Normal); URINE LEUKOCYTE ESTERASE NEG Leu/uL (Negative); URINE PROTEIN 1+ mg/dL (NEGATIVE); URINE UROBILINOGEN NORMAL mg/dL (0.2-1.0)
[2017-11-10 17:19] LABS: ALB/GLOB RATIO 1.6 (1.0-2.1); ALBUMIN 4.6 g/dL (3.5-5.0); ALT/SGPT 33 U/L (21-72); AST/SGOT 21 U/L (17-59); BLOOD UREA NITROGEN 13 mg/dL (9-20); GFR AFRICAN-AMERICAN > 60; GFR NON-AFRICAN AMERICAN > 60
[2017-11-10 17:21] LABS: BARBITURATES, UR NEGATIVE (NEGATIVE); BENZODIAZEPINES, UR NEGATIVE (NEGATIVE); OPIATES, UR NEGATIVE (NEGATIVE); PHENCYCLIDINE, UR NEGATIVE (NEGATIVE)
--- NOTE | 2017-11-10 21:34 | PCM.BM ---
<Jose F Grider - Last Filed: 11/10/17 21:31> Treatment Plan Problems - Problems identified on initial assessmt Depression Date Initiated: 11/10/17 Time Initiated: 19:35 Assessment reference: NA Status: Active Treatment assets and liabiliti Patient Assests: negotiates basic needs Patient Liabilities: medical problems (HTN, Diabetes, Cholesterol) - Milieu Protocol Maintain good personal hygiene: daily Encourage regular showers, daily Remind patient to perform daily oral care, every shift Assist patient to perform ADL's Conduct patient checks and document Observation sheet: Q15 minutes Maintain personal safety: every shift Educate patient to report safety concerns to staff, every shift Monitor environment for contraband/sharps Medication safety: Monitor for expected outcome, potential side effects: every shift, Assess barriers to learning: every shift, Assess readiness for medication education: every shift <Fara Ley - Last Filed: 11/12/17 15:41> Family Contact Family involvement: Patient does not wish Family/SO involvement Family contact: Patient declines to allow family contact at present - Goals for Treatment Patient goals for treatment: "I want to go to [facility] treatment." Discharge/Continuing Care - Education Needs Education Needs: Patient Medication, Patient Diagnosis/Disease Process, Patient Coping Skills, Patient Placement options, Patient Community resources - Discharge Discharge Criteria: Normal sleep pattern, Ability to care for self, Reduction of target symptoms Discharge to:: Home - Treatment Team Participation Discussed with Family/SO: No Was Patient/Family/SO present at Treatment Team Meeting: Yes
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
--- NOTE | 2017-11-12 13:09 | PCM.PYCHPN ---
Psychiatric Progress Note - Psychiatric Progress Note Patient seen today, length of contact: 15 min Patient Chief Complaint: "I am depressed" Problems Identified/Issues Discussed: The pt is seen, chart reviewed, case discussed with staff. The pt is compliant with medications and reports no side-effects. Pt appears well groomed, has a broad affect, is smiling and denies any depressed moods. He appeared to be confused but seemed to be due to the language barrier because once a poultry offal icer was used pt speech appeared to be normal. Support given, psycho-education provided. After care discussed. Medication Change: Yes Medical Record Reviewed: Yes Mental Status Examination - Cognitive Function Orientation: Person, Place, Situation, Time Memory: Intact Attention: WNL Concentration: Poor Association: WNL Fund of Knowledge: Poor - Mood Mood: Depressed, Anxious - Affect Affect: Broad - Speech Speech: Appropriate - Formal Thought Process Formal Thought Process: Loosening of associations - Suicidal Ideation Suicidal Ideation: No - Homicidal Ideation Homicidal Ideation: No Goal/Treatment Plan - Goal/Treatment Plan Need for Continued Stay: Severe depression anxiety, Severe functional impairment Progress Toward Problem(s) and Goals/Treatment Plan: Major depressive 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
[2017-11-12 16:33] VITALS: O2SAT 97
[2017-11-13 06:24] VITALS: RESP 18; TEMP 98.5
[2017-11-13 16:27] VITALS: BP 130/89; PULSE 67
--- NOTE | 2017-11-13 18:50 | PCM.PYCHPN ---
Psychiatric Progress Note - Psychiatric Progress Note Patient seen today, length of contact: 15 minutes Patient Chief Complaint: I am nervous to go home today. Problems Identified/Issues Discussed: Patient seen, chart reviewed, case discussed with the staff. Issues related to illness and treatment were discussed with the patient and staff. Reported compliant with treatment with no adverse affects. Tolerating treatment very well. Calm and cooperative. Mood reported as anxious. Affect appropriate. Patient was scheduled to go home today. Patient became very nervous and his blood pressure was fluctuating. Canceled discharge for today. Aftercare discussed with the patient. Patient was awake, alert and oriented 3. Denied any delusions, auditory or visual hallucinations, suicidal ideations or homicidal ideations at the time of evaluation Medical Problems: Diabetes mellitus Hypertension History of prostate cancer Diagnostic Results: Reviewed DSM 5 Symptoms Update: Some improvement with treatment Medication Change: Yes (Hydroxyzine changed to every 6 when necessary for anxiety) Medical Record Reviewed: Yes Mental Status Examination - Cognitive Function Orientation: Person, Place, Situation, Time Memory: Intact Attention: WNL Concentration: WNL Association: WNL Fund of Knowledge: [facility] Decription of patient's judgement and insights: Fair - Mood Mood: Anxious - Affect Affect: Other (Appropriate) - Speech Speech: Appropriate - Formal Thought Process Formal Thought Process: No Impairment Psychotic Thoughts and Behaviors: None - Suicidal Ideation Suicidal Ideation: No - Homicidal Ideation Homicidal Ideation: No Goal/Treatment Plan - Goal/Treatment Plan Need for Continued Stay: Remain at risks for inpatient hospitalization, Discharge may exacerbated symptoms, Severe functional impairment Progress Toward Problem(s) and Goals/Treatment Plan: Patient education. Supportive therapy. Hydroxyzine changed to every 6 when necessary from once daily. Continue rest of the treatment as before. Estimated Date of D/C: 11/15/17 - Smoking Cessation Smoking Cessation Initiated: No
--- NOTE | 2017-11-15 | CARD ---
APPROVED REPORT Date of service: 11/10/2017 EKG Measurement Heart [id number] <Conclusion> Normal sinus rhythm Possible Left atrial enlargement minimal voltage criteria for LVH Abnormal ECG
== END 2017-11-13 21:40 | disposition home or self-care (01) | DRG 430 ==
LOC: C.ER 13:19 → C.5E 18:39
PROVIDERS: ADMIT Psychiatry & Neurology Psychiatry; ATTEND Psychiatry & Neurology Psychiatry
PROC: GZHZZZZ Group Psychotherapy (ICD-10-PCS; principal; 2017-11-10)
PROC: GZ58ZZZ Individual Psychotherapy, Cognitive-Behavioral (ICD-10-PCS; 2017-11-10)
PROC: GZ56ZZZ Individual Psychotherapy, Supportive (ICD-10-PCS; 2017-11-10)
DX: F32.2 Major depressive disorder, single episode, severe without psychotic features (principal); R45.851 Suicidal ideations; F41.9 Anxiety disorder, unspecified; E78.00 Pure hypercholesterolemia, unspecified; E11.9 Type 2 diabetes mellitus without complications; N40.0 Benign prostatic hyperplasia without lower urinary tract symptoms; I25.10 Atherosclerotic heart disease of native coronary artery without angina pectoris; Z95.5 Presence of coronary angioplasty implant and graft; I10 Essential (primary) hypertension; Z85.46 Personal history of malignant neoplasm of prostate

== ENCOUNTER 2017-11-25 18:41 | Emergency (ER) | payer MEDICAID ==
[2017-11-25 18:42] VITALS: BMI 32.1
[2017-11-25 18:47] VITALS: O2SAT 100
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
[2017-11-25 20:00] VITALS: BP 140/78; PULSE 90; RESP 17; TEMP 98.2
== END 2017-11-25 20:00 | disposition home or self-care (01) ==
LOC: C.ER 18:41
DX: I10 Essential (primary) hypertension (principal)